=== PATIENT | female | born 1945 | race Caucasian/White ===

== ENCOUNTER 2024-10-26 15:54 | Inpatient (IN) | payer MEDICARE, OTHER, SELFPAY ==
[2024-10-26] VITALS (9 sets, daily range): BP systolic 95–151; BP diastolic 52–100; BMI 17.5
[2024-10-26] MEDS: CARDIZEM 10 MG IV (12:48)
[2024-10-26 12:50] LABS: % Basophils 0.7 % (0-2); % Eosinophils 2.9 % (0-6); % Immature Granulocytes 0.4 % (0-0.5); % Lymphocytes 11.8 % (20.5-51.1); % Monocytes 7.7 % (1.7-9.3); % Neutrophils 76.5 % (42.2-75.2); Absolute Basophils 0.1 10^3/uL (0-0.2); Absolute Eosinophils 0.3 10^3/uL (0-0.7); Absolute Immature Granulocytes 0.1 10^3/uL (0-0.05); Absolute Lymphocytes 1.3 10^3/uL (1.2-3.4); Absolute Monocytes 0.9 10^3/uL (0.1-0.6); Absolute Neutrophils 8.6 10^3/uL (1.4-6.5); Hemoglobin 18.4 g/dL (12.0-16.0); Mean Corp Hgb Conc. 34.7 g/dL (33.0-37.0); Mean Corpuscular Hgb 28.2 pg (27.0-31.0); Mean Corpuscular Volume 81.2 fL (81.0-99.0); Mean Platelet Volume 12.8 fL (7.4-10.4); Nucleated Red Blood Cells % 0 %; Platelet Count 132 10^3/uL (130-400); Red Blood Cell Count 6.53 10^6/uL (4.20-5.40); Red Cell Dist. Width 13.5 % (11.5-14.5); White Blood Cell Count 11.2 10^3/uL (4.8-10.8)
[2024-10-26 13:06] LABS: ALT (SGPT) 52 U/L (0-35); AST (SGOT) 70 U/L (14-36); Albumin 4.4 g/dl (3.5-5.0); Alkaline Phosphatase 64 U/L (38-126); Blood Urea Nitrogen 42 mg/dl (7-17); Calcium 9.6 mg/dl (8.4-10.2); Carbon Dioxide 21 mmol/L (22-30); Chloride 94 mmol/L (98-107); Estimated Creatinine Clearance 37 ml/min; Glucose 128 mg/dl (70-99); Magnesium 2.1 mg/dl (1.6-2.3); Sodium 132 mmol/L (135-145); Total Bilirubin 1.2 mg/dl (0.2-1.3); eGFR 51.43
[2024-10-26] MEDS: LR 500 IV (13:23)
[2024-10-26] MEDS: MAGNESIUM SULFATE 50 IV (13:24)
[2024-10-26] MEDS: KCL 40 MEQ PO (13:25)
--- NOTE | 2024-10-26 13:29 | ED.GENMED ---
History of Present Illness
General
Chief Complaint: Breathing Problem
Time Seen by Provider: 10/26/24 12:25
History of Present Illness
History of Present Illness:
79-year-old female presents to the emergency department for evaluation of generalized weakness and shortness of breath. She states she had an episode of vomiting and diarrhea approximately 1 week ago, since that time has felt increasingly lethargic
and short of breath with exertion. She states she can take no more than 2 steps without having to sit and rest. Denies any chest pain. Prior history of CAD/AR with a stent to the LAD in 2020, states the symptoms are not at all comparable to that.
No fevers, chills, coughing, or shortness of breath at rest.
Past History
Past History
ED Past Medical History: CAD, HTN, Hypercholesterolemia and AR; Negative IDDM or NIDDM
Social History
Tobacco: Smoker
Review of Systems
Review of Systems
Allergies reviewed?: Yes
All Other Systems: ROS reviewed and negative except as documented in HPI and ROS
Phy Exam
Physical Exam
Physical Exam:
GEN: Thin, chronically ill-appearing, no acute distress
HEENT: Oral mucosa dry no scleral icterus
Cardiac: Markedly tachycardic, regular, no murmur
Lung: No respiratory distress, no tachypnea, lungs clear to auscultation bilaterally
MSK: No gross deformity or injuries
Skin: Good color, no pallor or jaundice, no rashes
Neuro: AO x3, moves all extremities freely
Psych: Calm, cooperative
Scores
Heart Failure Risk
Heart Failure Risk Score: Not Applicable
Course
Orders/Labs/Results
Orders:
Orders
10/26/24 Breakfast
Cholesterol Lowering
Cholesterol Lowering: Sodium, 2 Gram
10/26/24 12:31
Electrocardiogram (*1) Urgent
Reason for Study: Chest Pain
Cardiac Monitoring- Treatment ONCE
EKG- Treatment ONCE
IV Insert/Care/Rem.- Treatment PRN
10/26/24 12:34
Complete Blood Count/With Diff Urgent
Comprehensive Metabolic Panel Urgent
Magnesium Urgent
Comment: ADD
PTT Urgent
Comment: ADD ON
Prothrombin Time Urgent
TSH Reflex To Free T4 Routine
Comment: ADD ON
10/26/24 12:41
Add On- LAB Urgent
Tests Added?: magnesium
Diltiazem HCl [Cardizem] 10 mg IV NOW STA
10/26/24 12:44
CR Chest Portable - 1 View Urgent
Comment:
Reason For Exam: SOB
Reason Study Needs to be Portable: Other
10/26/24 13:12
Magnesium Sulfate 2 Gram/50 ml [Magnesium Sulfate] 2 gram in 50 ml IV NOW
Potassium Chloride [KCl] 40 meq PO NOW STA
Potassium Chloride [KCl] 20 meq 0.9% Sodium Chloride 150 ml [Nss] 150 ml IV NOW
10/26/24 13:13
Lactated Ringers [Lr] 500 ml IV BOLUS
10/26/24 14:07
Heparin 3,300 units IV NOW STA
Nursing to Place Non Medication Order As Directed
Physician Order: PTT 6 hours after initial start of Heparin infusion
Above order entered?: Yes
10/26/24 14:15
Heparin 85718 Units/250 ml 25,000 units in 250 ml IV PER PROTOCOL
Weight to be used for heparin protocol in kilograms (kg):: 55.2
Protocol:: Cardiac Tx/Acute Coronary
PTT Goal Range to be used:: PTT 73 to 111 seconds
Order type:: Initial
INITIAL Infusion Dose (UNITS/KG/hr) & then follow protocol:: 12 units/kg/hr
Infusion Dose in UNITS/hr & then follow protocol (UNITS/hr):: 650
INFUSION RATE in mL/hr & then follow protocol (mL/hr):: 6.5
PTT less than or equal to 64 seconds:: Increase rate by 200 units/hr (+ 2 mL/hr)
PTT 64.1 to 72.9 seconds:: Increase rate by 100 units/hr (+ 1 mL/hr)
PTT 73 to 111 seconds:: Target Range. No change in rate.
PTT 111.1 to 130.9 seconds:: Decrease rate by 100 units/hr (- 1 mL/hr)
PTT 131 to 199.9 seconds:: HOLD for 1 hr. Then decrease rate by 200 units/hr (- 2 mL/hr)
PTT greater than or equal to 200 seconds:: HOLD for 2 hrs & Notify Provider. Then decrease by 200 units/hr (-
2 mL/hr)
Lab follow-up:: Each change, PTT q6h until 2 consecutive are therapeutic. Then PTT
daily.
10/26/24 14:43
Add On- LAB Urgent
Tests Added?: APTT
Potassium Chloride [KCl] 20 meq 0.9% Sodium Chloride 150 ml [Nss] 150 ml IV NOW
10/26/24 15:26
Urinalysis Reflex To Culture Routine
10/26/24 15:27
Admit/Transfer Patient As Directed
Co-Sign Provider:
Level of Care: Inpatient admission
Assign to:: IVU
Physician / Group: hortensia
Diagnosis: atrial fib with RVR
Reason for Hospitalization: atrial fib with RVR
Expected length of stay greater than two midnights?: Yes
ELOS- Estimated Length of Stay in days: 3
I certify the patient meets the requirements for IP care: Yes
PRN Pain Medication Management As Directed
May give lesser potent ordered pain med per pt: Yes
preference::
Protocol:: Medication orders for pain may be administered in a
manner that supports deferring to patient preference
when the pt is:
- Requesting an ordered lesser potent pain medication.
Least to most potent pain medications are defined
as: acetaminophen < NSAID < tramadol < opioids
(morphine, oxycodone, hydromorphone).
- Requesting a lesser dose of the same medication IF
ORDERED.
- Requesting a less intrusive route of administration
if both routes are prescribed by the provider (PO <
IV).
10/26/24 15:28
Code Status As Directed
Resuscitation Status: Full Code
10/26/24 15:43
Add On- LAB Routine
Tests Added?: TSH with reflex to free T4
10/26/24 15:45
Diltiazem 125 mg/125 ml Nss [Cardizem] 125 mg in 125 ml IV PER PROTOCOL
Initial dose in mg/hr, then titrate:: 5
Titrate to keep:: Heart rate 80-100 bpm
Titrate by mg/hr:: 5 mg/hr
Frequency of titrations (minutes):: 15
Maximum dose in mg/hr:: 15
10/26/24 16:29
COVID-19 Antigen Stat
Source: Nasal Swab
Influenza A+B Rapid Molecular Stat
KARLA Source: Nasal Swab
Specimen Description:
10/26/24 17:23
0.9% Sodium Chloride 1000 ml [Nss] 1,000 ml IV 100 mls/hr
Acetaminophen [Tylenol] 650 mg PO Q4HPRN PRN
Bisacodyl [Dulcolax] 10 mg RECTAL [id number] PRN
Diltiazem 125 mg/125 ml Nss [Cardizem] 125 mg in 125 ml IV PER PROTOCOL
Currently infusing. Continue current dose and titrate:: Yes
Titrate to keep:: Heart rate 80-100 bpm
Titrate by mg/hr:: 5 mg/hr
Frequency of titrations (minutes):: 15
Maximum dose in mg/hr:: 15
Docusate W/Senna [Senokot-S] 1 tablet PO BIDPRN PRN
Polyethylene Glycol Powder [Miralax] 17 grams PO DAILYPRN PRN
10/26/24 17:23
CARDIOLOGY CONSULT Routine
Consulting Provider: Tramaine Rios
Was physician already notified: Yes
Heparin Protocol- PTT Orders As Directed
PTT per Heparin protocol: -Obtain CBC and baseline PTT - if not already collected.
-Obtain PTT 6 hours from start of infusion. Then, every 6 hours until 2 consecutive
PTT's are therapeutic. Then, PTT Daily.
-With each rate change, obtain PTT every 6 hours until 2 consecutive PTT's are
therapeutic. Then, PTT Daily.
Activity As Directed
Activity Level: As Tolerated
Notify MD As Directed
Notify physician if: PTT is greater than or equal to 200.
Vital Signs As Directed
Frequency: Per unit guidelines
10/26/24 18:00
Atorvastatin [Lipitor] 80 mg PO QPM
10/27/24 06:00
Basic Metabolic Panel IN AM
Cardiovascular Evaluation IN AM
Complete Blood Count/No Diff IN AM
10/27/24 08:00
Aspirin Chewable [Low Strength Aspirin] 81 mg PO DAILY
Ezetimibe [Zetia] 10 mg PO DAILY
10/28/24 06:00
Basic Metabolic Panel IN AM
Complete Blood Count/No Diff IN AM
Complete Blood Count/No Diff Q2D
Comment: notify provider: Platelet count < 130,000 or decrease by 50% from baseline
10/29/24 06:00
Basic Metabolic Panel IN AM
Complete Blood Count/No Diff IN AM
10/30/24 06:00
Basic Metabolic Panel IN AM
Complete Blood Count/No Diff IN AM
Complete Blood Count/No Diff Q2D
Comment: notify provider: Platelet count < 130,000 or decrease by 50% from baseline
11/01/24 06:00
Complete Blood Count/No Diff Q2D
Comment: notify provider: Platelet count < 130,000 or decrease by 50% from baseline
11/03/24 06:00
Complete Blood Count/No Diff Q2D
Comment: notify provider: Platelet count < 130,000 or decrease by 50% from baseline
11/05/24 06:00
Complete Blood Count/No Diff Q2D
Comment: notify provider: Platelet count < 130,000 or decrease by 50% from baseline
11/07/24 06:00
Complete Blood Count/No Diff Q2D
Comment: notify provider: Platelet count < 130,000 or decrease by 50% from baseline
11/09/24 06:00
Complete Blood Count/No Diff Q2D
Comment: notify provider: Platelet count < 130,000 or decrease by 50% from baseline
11/11/24 06:00
Complete Blood Count/No Diff Q2D
Comment: notify provider: Platelet count < 130,000 or decrease by 50% from baseline
Abnormal Lab Results
10/26/24
12:34
WBC 11.2 H 10^3/uL
(4.8-10.8)
RBC 6.53 H 10^6/uL
(4.20-5.40)
Hgb 18.4 H g/dL
(12.0-16.0)
Hct 53.0 H %
(37.0-47.0)
MPV 12.8 H fL
(7.4-10.4)
Abs Immat Gran (auto) 0.1 H 10^3/uL
(0-0.05)
Absolute Neuts (auto) 8.6 H 10^3/uL
(1.4-6.5)
Absolute Monos (auto) 0.9 H 10^3/uL
(0.1-0.6)
Neutrophils % 76.5 H %
(42.2-75.2)
Lymphocytes % 11.8 L %
(20.5-51.1)
Sodium 132 L mmol/L
(135-145)
Potassium 3.0 L mmol/L
(3.5-5.1)
Chloride 94 L mmol/L
(98-107)
Carbon Dioxide 21 L mmol/L
(22-30)
BUN 42 H mg/dl
(7-17)
Creatinine 1.1 H mg/dL
(0.6-1.0)
Glucose 128 H mg/dl
(70-99)
AST 70 H U/L
(14-36)
ALT 52 H U/L
(0-35)
10/26/24 12:34
10/26/24 12:34
Vital Signs
Initial and Last Documented VS:
Initial Vital Signs
Pulse Resp
159 22
10/26/24 12:26 10/26/24 12:26
Last Documented Vital Signs
Temp Pulse Resp BP Pulse Ox
98.0 F 104 47 95/64 96
10/26/24 16:45 10/26/24 16:45 10/26/24 15:45 10/26/24 16:00 10/26/24 16:45
MDM/Problems Addressed
MDM/Problems Addressed:
Patient's shortness of breath is most likely on the basis of new onset atrial fibrillation. She was given an IV diltiazem bolus with good improvement in heart rates. The ultimate cause of this is most likely hypovolemia and electrolyte depletion,
IV fluids and electrolytes initiated in the ED. Heart rates consistently 110 to 120 thus do not feel there is any indication for a diltiazem drip. Heparin drip initiated for anticoagulation. She has not a cardioversion candidate. Will admit to
the hospitalist service for further management
*Critical Care Note
Total Time (30-74mins, 75-104mins- exclusive of procedures): 35 min
comment:
Critical care time: 35 minutes
Critical care time was exclusive of: Separately billable procedures, treating other patients, and teaching time
Critical care was necessary to treat or prevent imminent or life-threatening deterioration of the following conditions: Rapid atrial fibrillation
Critical care time spent personally by me on the following activities:
[x] Review of old charts
[x] Obtaining history from patient or surrogate
[x] Ordering and review of the laboratory studies
[x] Ordering and review of radiographic studies
[x] Ordering and performing treatments and interventions
[x] Patient patient's response to treatment
[x] Development of treatment plan with patient or surrogate
ED Attending Note
-
Portions of this chart may have been created with voice recognition software.� Occasional wrong word or��sound alike� substitutions may have occurred due to the inherent limitations of voice recognition software.
Discharge Plan
Departure
Patient Disposition: Admit
Date of Disposition: 10/26/24
Time of Disposition: 14:08
Admit to: Telemetry
Presentation/result/management discussed w/ accepting MD/DO: Hospitalist
Discharge Problem:
Atrial fibrillation, new onset, Acute dehydration, Acute hypokalemia
Interventions
Interventions:
*Risk Screen - Suicide Last Done: 10/26/24 12:26
*General Assessment Last Done: 10/26/24 12:28
*Neglect/Abuse Screening Last Done: 10/26/24 12:26
ED- Fall Risk Assessment Last Done: 10/26/24 12:33
*ED COVID-19 Vaccine History Last Done: 10/26/24 12:26
ED- Cardiac Assessment Last Done: 10/26/24 12:28
ED- Pulmonary Assessment Last Done: 10/26/24 12:32
[2024-10-26 14:37] LABS: INR 0.93; PT 12.9 Sec (11.4-14.6)
[2024-10-26] MEDS: HEPARIN 3300 UNITS IV (15:01)
[2024-10-26] MEDS: HEPARIN 25000 UNITS/250 ML IV (15:02)
--- NOTE | 2024-10-26 15:06 | HPS.HSE ---
Addendum entered and electronically signed by Bre Toure MD 10/26/24 15:57:
see my update note for addendum
Original Note:
Family Physician
-
Family Physician: Andrew Katz
Chief Complaint
-
sob
History of Present Illness
79-year-old female with past medical history of hyperlipidemia, [place], coronary artery disease, hypertension presents to the emergency department for evaluation of generalized weakness and shortness of breath. She states she had an episode of
vomiting and diarrhea approximately 5 days ago. She vomited once, and had multiple episodes of diarrhea patient few days. since that time has felt increasingly lethargic and short of breath with exertion. She states she can take no more than 2
steps without having to sit and rest. Patient stated frequent falls.denies hitting head patient denied any headache. She was dizzy. Patient denied any congestion, cough. denies any chest pain. No fevers, chills, coughing. Patient denied
abdominal pain. Denies dysuria materia. Patient stated poor oral intake for past 5 days.
Patient was noted in A-fib with RVR on arrival. Heparin drip, Cardizem drip. Patient also supplemented with IV KCl and mag.
Admitting for further management
Medical History
Past Medical History
Past Medical History: Reports Other
Additional Past Medical History:
Hyperlipidemia
UT
CAD
Hypertension
Bradycardia
Hyperlipidemia
Past Surgical History: Reports Other
Additional Past Surgical History:
Status post stent placement
Hysterectomy
BSO
Appendectomy
Social History
Tobacco: Non-smoker
Alcohol: None
Drug: None
Living: Alone
Family History
Family History: Not pertinent
Allergies / Home Medications
Allergies reflects when Allergies were last updated in [facility].
Home Medications with original date entered in [facility]
Allergy/Medication List:
Allergies
Allergy/AdvReac Type Severity Reaction Status Date / Time
band aid Allergy Rash Uncoded 10/26/24 12:26
Home Medications
aspirin 81 mg chewable tablet 81 mg PO DAILY 05/30/20
atorvastatin 80 mg tablet 80 mg PO QPM #30 tabs 05/30/20
lisinopril 10 mg tablet 10 mg PO DAILY #30 tabs 05/30/20
acetaminophen 325 mg tablet (Tylenol) 650 mg PO Q6HPRN PRN mild pain 10/26/24
ezetimibe 10 mg tablet (Zetia) 10 mg PO DAILY 10/26/24
Review of Systems
-
Constitutional: Reports Fatigue
EENT: Reports No Symptoms
Respiratory: Reports Trouble Breathing
Abdomen/GI: Reports Nausea, Vomiting and Diarrhea
: Reports No Symptoms
Musculoskeletal: Reports No Symptoms
Skin: Reports No Symptoms
Neurological: Reports Dizzy and Weakness
Endocrine: Reports No Symptoms
Hematologic/Lymphatic: Reports No Symptoms
Psych: Reports No Symptoms
Physical Exam
Vital Signs
Vital Signs
Pulse Resp BP
114 47 97/72
10/26/24 14:05 10/26/24 14:05 10/26/24 13:01
Physical Exam
General: Well Developed, Well Nourished and No Apparent Distress
HEENT: NormoCephalic, Moist mucous membranes and Atraumatic
Respiratory: Clear
Cardiac: S1/S2 and Regular Rhythm; No Murmur or Rub
GI: Soft, Non Tender, Non Distended and Normal Bowel Sounds; No Organomegaly
Rectal: Deferred by Provider
Musculoskeletal: No Clubbing, No Cyanosis and No Edema
Skin: No Rash
Neuro: AO x 3 and Nonfocal/grossly intact
Psych: Calm
Laboratory Results
-
10/26/24 12:34
10/26/24 12:34
Laboratory Results
PT 12.9 Sec (11.4-14.6) 10/26/24 12:34
INR 0.93 10/26/24 12:34
APTT Cancelled 10/26/24 14:07
Total Bilirubin 1.2 mg/dl (0.2-1.3) 10/26/24 12:34
AST 70 U/L (14-36) H 10/26/24 12:34
ALT 52 U/L (0-35) H 10/26/24 12:34
Alkaline Phosphatase 64 U/L (38-126) 10/26/24 12:34
Data Reviewed
-
Diagnostic Radiology: Report Reviewed by me
Lab Data: Labs Reviewed by me
Impression/Plan
-
#new onset rapid atrial fib likely from dehydration/hypovolemia
-Patient received Cardizem bolus in ER
-Continue to monitor heart rate
-Cardiology consulted
-EKG with A-fib with RVR
-Heparin continued
#N/V/D likely viral
-resolved
-obtain flu and COVID.
# Leukocytosis likely stress reaction
-WBCs 11.2
-Patient is afebrile
-Continue to monitor
-Chest x-ray with no acute disease
-Obtain urinalysis
# Hemoconcentration likely dehydration
-Hemoglobin of 18.4, hematocrit 53.0
-Fluids continued
-Monitor CBC in a.m.
# Hyponatremia likely hypovolemic
-Sodium 132
-fluids continued
# Hypokalemia/FERNANDO likely dehydration
-K3.0
-KCl IV and oral
-Patient received mag rider
# Transaminitis likely chronic likely dehydration
-AST 70, ALT 52
# Hypotension likely from dehydration we will continue
-Monitor vital signs
# Coronary artery disease
-Status post cardiac stent
-Aspirin continued
# Hyperlipidemia
-Zetia continued
-Atorvastatin continued
# Essential hypertension
-Hold lisinopril due to hypotension
# DVT prophylaxis
-Heparin drip
# CODE STATUS
-Full code
[2024-10-26] MEDS: KCL 160 MEQ IV (15:11)
--- NOTE | 2024-10-26 15:57 | W.PN.UPDATE ---
Update Note
Progress Note Update
I saw and examined the patient.
The TAPE LIBRARIAN Ian's note was reviewed and I agree with the note.
Comment: 79 y/o F, hx of CAD with [place], HTN, presenting to Er with SOB, fatigue, palpitations. Patient report 5 days had 1 episode of nausea/vomiting along with several bouts of diarrhea. Since then her GI symptoms have improved but now feels
lethargic and CHRISTIANSON. She is unable to ambulate more than 2 steps without symptoms. She reports frequent falls, no head trauma. Reports dizziness. No chest pain. no fever/chills/cough. Reports poor oral intake x 5 days.
in ER, found to have mild FERNANDO, hypokalemia and rapid AFib - given 500 cc LR, Cardizem push and K replacement. IV heparin started.
Physical Exam
General: Well Developed, Well Nourished and No Apparent Distress
HEENT: Normocephalic, Moist mucous membranes and Atraumatic
Respiratory: Clear
Cardiac: Irregular rhythm, tachycardia; No Murmur or Rub
GI: Soft, Non Tender, Non Distended and Normal Bowel Sounds; No Organomegaly
Rectal: Deferred by Provider
Musculoskeletal: No Clubbing, No Cyanosis and No Edema
Skin: No Rash
Neuro: AO x 3 and Nonfocal/grossly intact
Psych: Calm
Plan: Mildly dehydrated will start low rate IVF. replacement electrolytes and repeat AM labs. For Rapid AFib, admit to IVU, start Cardizem drip. Echo. Cards consult. TSH pending. Known to Dr. Anaya.
--- NOTE | 2024-10-26 16:08 | CON.CAR ---
Addendum entered and electronically signed by Tramaine Rios DO 10/26/24 16:55:
I saw and examined the patient.
The License Issuer's note was reviewed and I agree with the note.
Comment:
Plan:
-Patient presented after N/V/D last week with weakness and lightheadedness. Found to have evidence of dehydration, hypokalemia as well as afib with RVR.
IV Cardizem for rate control
IV heparin and transition to Eliquis once no procedures are planned.
Check echo to eval EF
IF fails to convert spontaneously, could consider YESENIA/cv inpt vs outpt.
IVF hydration and repletion of lytes as per primary service
Cont supportive care
Outpt follow up with Dr Anaya.
Original Note:
Consultation
Consultation Request
Date/Time Consultation Performed: 10/26/24
Requesting Provider: Dr. Toure
Performing Provider: Kary Kennedy PA-C for Dr. Rios
Reason for Consultation: afib
Medical History
-
Chief Complaint: lightheadedness, weakness
History of Present Illness:
Patient is a 79-year-old female with past medical history of CAD with [place] in 2019 resulting in LAD PCI, hypertension, hyperlipidemia, prior cervical cancer status post hysterectomy/BSO in 1993, prior tobacco abuse who presented to [facility]
due to lightheadedness. She reports last week she had a large amount of vomit as well as diarrhea. She reports since that time she has felt lightheaded, dyspneic with exertion, and with palpitations/heart racing. She reports multiple times at
night she wakes up 'soaking wet'. She reports she has no strength. She denies fevers or chills. No chest pain. On arrival noted to be in atrial fibrillation with rapid ventricular response. Also with evidence of dehydration and electrolyte
abnormalities including hypokalemia. Cardiology consulted for evaluation
PMH:
CAD status post [place] with LAD PCI in 2019
Hypertension
Hyperlipidemia
Prior cervical cancer status post hysterectomy/BSO in 1993
Former tobacco use
Past Medical History
Past Medical History: Other (in HPI)
Social History
Tobacco: Former Smoker
Alcohol: Occasional
Family History
Family History: CAD and Cancer
Allergies / Home Medications
Allergy/AdvReac Type Severity Reaction Status Date / Time
band aid Allergy Rash Uncoded 10/26/24 12:26
�Medication �Instructions �Recorded �Confirmed �Type
aspirin 81 mg chewable tablet 81 mg PO DAILY 05/30/20 10/26/24 Rx
atorvastatin 80 mg tablet 80 mg PO QPM #30 tabs 05/30/20 10/26/24 Rx
lisinopril 10 mg tablet 10 mg PO DAILY #30 tabs 05/30/20 10/26/24 Rx
acetaminophen 325 mg tablet 650 mg PO Q6HPRN PRN mild pain 10/26/24 10/26/24 History
(Tylenol)
ezetimibe 10 mg tablet (Zetia) 10 mg PO DAILY 10/26/24 10/26/24 History
Review of Systems
-
History Source: Patient
All other systems: Negative unless noted
Physical Exam
Vital Signs
Pulse Resp BP
115 22 111/66
10/26/24 15:30 10/26/24 15:30 10/26/24 15:00
Lab Results
10/26/24 12:34
10/26/24 12:34
Physical Exam
General: No Apparent Distress and Comfortable
HEENT: Normocephalic, Anicteric and Moist Mucous Membranes
Respiratory: Clear and Non Labored Respirations
Cardiac: S1/S2 and Irregular Rhythm
GI: Soft and Normal Bowel Sounds
Musculoskeletal: No Clubbing, No Cyanosis and No Edema
Skin: Warm and Dry
Neuro: AO x 3
Impression / Plan
-
Primary Basic Acoustic Analyst: Dr. Anaya
Assessment:
Presentation with lightheadedness, weakness
Dehydration
FERNANDO
Hypokalemia
Hyponatremia
Elevated LFTs
Atrial fibrillation with RVR, new diagnosis, likely secondary to above
CAD status post [place] with LAD PCI in 2019
Hypertension
Hyperlipidemia
Prior cervical cancer status post hysterectomy/BSO in 1993
Former tobacco use
ECHO 03/25/23: EF 55 to 60%, no regional wall motion abnormalities noted, mild TR, PAP 25 to 30 mmHg
Plan:
-Patient presented after N/V/D last week with weakness and lightheadedness. Found to have evidence of dehydration, hypokalemia as well as afib with RVR.
-covid pending. CXR without acute abnormality
-afib is new diagnosis for patient. currently with RVR. being started on IV cardizem gtt
-[id number] score of 5 for age, female, HTN, vascular disease. denies history of bleeding issues. currently on IV heparin. will plan to transition to eliquis in AM. continue OP asa for now, however may consider stopping with initiation of OAC
-check echo, last from 2022 as above
-check TSH
-replete K
-IVF
-hopefully with improvement in hydration status and electrolyte correction, patient will spontaneously convert to SR. if not, could consider for YESENIA/CV prior to DC
-d/w hospitalist
Data Reviewed
-
EKG: Tracing Personally Visualized and interpreted
Radiology: Report Reviewed by me
Medical Tests (Nuc Med, Echo etc): Report Reviewed by me
Labs: Labs Reviewed by me
Old Records: Reviewed
[2024-10-26] MEDS: CARDIZEM 125 IV (16:27)
[2024-10-26 17:13] LABS: COVID-19 Antigen Negative (Negative)
[2024-10-26 17:30] LABS: TSH Reflex To Free T4 1.47 uIU/ml (0.47-4.68)
[2024-10-26] MEDS: NSS 1000 IV (17:46)
--- NOTE | 2024-10-26 18:29 | PTCARENOTE ---
Rec'd pt from ED awake and alert with no complaints. Pt Afib on monitor, on cardizem gtt at 10mg/hr. Heparin at 650 units/hr. NSS begun at 100ml/hr. Admission assessment completed and admission history obtained. See worklist for VS/I and O and
assessments.
[2024-10-26] MEDS: LIPITOR 80 MG PO (18:48)
--- NOTE | 2024-10-26 21:31 | PTCARENOTE ---
Patient received at change of shift resting in the bed. Normal saline solution infusing at 100mL/hr. Heparin gtt infusing at 650 units/hr. Diltiazem gtt infusing at 10mg/hr. Patient is without complaints at this time. Denies chest pain or pressure,
dizziness, and/or shortness of breath. Atrial fibrillation on enzyme chemist with occasional PVC's. Patient ambulated to bathroom, standby assist. Voided 400mL mushtaq urine, U/A sent per order. Discussed plan of care with patient including purpose
of diltiazem and heparin gtt. Afib packet given to patient. Call fontenot within reach. Bed in lowest position, wheels locked. Care ongoing.
[2024-10-26 21:32] LABS: Urine Albumin 2+ (Neg - Trace); Urine Bilirubin Negative (Negative); Urine Character Clear (Clear); Urine Color Yellow; Urine Glucose Negative (Negative); Urine Ketone 1+ (Negative); Urine Leukocyte Negative (Negative); Urine Nitrite Negative (Negative); Urine Occult Blood Negative (Negative); Urine Urobilinogen Negative (Neg - 1+)
[2024-10-26 21:39] LABS: Urine Bacteria Few (Negative); Urine Red Blood Cell 0-2 /HPF (0-2); Urine Squamous Cell 0-2 /LPF (Few)
[2024-10-26 21:44] LABS: APTT 59.4 Sec (23.4-35.0)
[2024-10-26 21:46] LABS: AST (SGOT) 60 U/L (14-36); Albumin 3.5 g/dl (3.5-5.0); Alkaline Phosphatase 53 U/L (38-126); Blood Urea Nitrogen 39 mg/dl (7-17); Calcium 9.5 mg/dl (8.4-10.2); Carbon Dioxide 22 mmol/L (22-30); Chloride 102 mmol/L (98-107); Estimated Creatinine Clearance 51 ml/min; Glucose 119 mg/dl (70-99); Potassium 3.3 mmol/L (3.5-5.1); Sodium 133 mmol/L (135-145); Total Bilirubin 0.8 mg/dl (0.2-1.3); Total Protein 6.1 g/dl (6.3-8.2); eGFR > 60.00
[2024-10-26 21:56] LABS: ALT (SGPT) 46 U/L (0-35)
[2024-10-27] MEDS: CARDIZEM 125 IV (02:00)
[2024-10-27 02:04] VITALS: BP 92/59
--- NOTE | 2024-10-27 02:28 | PTCARENOTE ---
Patient asking if there was a green party, stated she heard loud music, stated she heard what sounded like a live band. Patient also asking about plan of care which was discussed previously during this shift. Reviewed plan of care. Reoriented patient to
unit. Bed alarm armed due to forgetfulness. Call fontenot within reach. Care ongoing.
[2024-10-27] MEDS: NSS 1000 IV (03:00)
[2024-10-27 03:43] LABS: Hemoglobin 14.1 g/dL (12.0-16.0); Mean Corp Hgb Conc. 35.3 g/dL (33.0-37.0); Mean Corpuscular Hgb 28.4 pg (27.0-31.0); Mean Corpuscular Volume 80.5 fL (81.0-99.0); Mean Platelet Volume 12.3 fL (7.4-10.4); Platelet Count 141 10^3/uL (130-400); Red Blood Cell Count 4.97 10^6/uL (4.20-5.40); Red Cell Dist. Width 13.2 % (11.5-14.5); White Blood Cell Count 9.6 10^3/uL (4.8-10.8)
[2024-10-27 03:50] LABS: APTT 80.1 Sec (23.4-35.0)
[2024-10-27 04:21] LABS: Blood Urea Nitrogen 32 mg/dl (7-17); Calcium 8.4 mg/dl (8.4-10.2); Carbon Dioxide 20 mmol/L (22-30); Chloride 102 mmol/L (98-107); Estimated Creatinine Clearance 58 ml/min; Glucose 105 mg/dl (70-99); HDL Cholesterol 18 mg/dl; LDL Cholesterol, Calculated 57 mg/dl; Potassium 3.3 mmol/L (3.5-5.1); Sodium 131 mmol/L (135-145); Total Cholesterol 104 mg/dl (50-199); Triglyceride 147 mg/dl (10-149); Very Low Density Lipoprotein 29 mg/dl (0-30); eGFR > 60.00
[2024-10-27 07:40] VITALS: BP 105/66
--- NOTE | 2024-10-27 08:04 | W.PN.HOSP.TC ---
Today's Communication/Plan
-
see A/P
Assessment / Plan
Assessment / Plan
79 y/o F, hx of CAD with [place], HTN, presented with SOB, fatigue, palpitations.
Patient reported 5 days had 1 episode of nausea/vomiting along with several bouts of diarrhea. Since then her GI symptoms have improved but then felt lethargic and CHRISTIANSON.
She is unable to ambulate more than 2 steps without symptoms. She reports frequent falls, no head trauma.
In ER, found to have mild FERNANDO, hypokalemia and rapid AFib - given 500 cc LR, Cardizem push and K replacement. IV heparin started.
A/P:
# new onset A fib with RVR likely precipitated by recent GI illness
IV Cardizem for rate control
IV heparin and transition to Eliquis once no procedures are planned.
Check echo
Card to consider YESENIA/CV inpt vs outpt if fails to convert spontaneously
# N/V/D likely acute viral gastroenteritis, resolved
flu/COVID negative.
# Mild Leukocytosis likely stress reaction, resolved
Patient is afebrile, CXR no acute disease
# Hemoconcentration on admission likely dehydration
# Hypotension on admission likely from dehydration
Hemoglobin 18.4 -> 14.1 today
s/p IVF, observe off additional IVF
BP improved, monitor BP
# Hyponatremia
possible 2/2 dehydration, monitor
# Hypokalemia
repleted K
# Mild FERNANDO likely dehydration, resolved
SCr 1.1 to 0.7
# Elevated LFT likely reactive
Trend
# Coronary artery disease
Status post cardiac stent
Aspirin continued
# Hyperlipidemia
Zetia/ Atorvastatin continued
# Essential hypertension
Hold lisinopril due to hypotension
DVT prophylaxis-Heparin drip
CODE STATUS-Full code
DW RN
Anticipated Discharge: > 48 hours
Subjective/Interval History
-
Date of Service: October 27, 2024
Objective Data
-
Labs:
Laboratory Results
10/26/24 10/27/24 10/27/24
21:17 03:18 03:19
WBC 9.6
Hgb 14.1 D
Hct 40.0
Plt Count 141
APTT 59.4 H 80.1 H
Sodium 133 L 131 L
Potassium 3.3 L 3.3 L
Chloride 102 102
Carbon Dioxide 22 20 L
BUN 39 H 32 H
Creatinine 0.8 0.7
Glucose 119 H 105 H
Calcium 9.5 8.4
Total Bilirubin 0.8
AST 60 H
ALT 46 H
Alkaline Phosphatase 53
10/27/24
09:15
WBC
Hgb
Hct
Plt Count
APTT Pending
Sodium
Potassium
Chloride
Carbon Dioxide
BUN
Creatinine
Glucose
Calcium
Total Bilirubin
AST
ALT
Alkaline Phosphatase
Vital Signs:
Vital Signs
Temp Pulse Resp BP Pulse Ox
36.6 C 63 20 105/66 94
10/27/24 07:40 10/27/24 07:40 10/27/24 07:40 10/27/24 07:40 10/27/24 07:40
I&O
10/26/24 10/27/24 10/28/24
06:59 06:59 06:59
Intake Total 1512.5 / 1512.5
Output Total 700 / 700
Balance 812.5 / 812.5
Review of Systems
-
All other systems: Reviewed and negative
Physical Exam
-
General: Well Developed, Well Nourished, No Apparent Distress, Comfortable and Conversant; Negative Respiratory Distress
HEENT: Normocephalic, Atraumatic, Nose Appears Normal and Ears Appear Normal; Negative Oxygen
Respiratory: Clear to Auscultation and Non Labored Respirations; Negative Accessory Resp Muscle Use
Cardiac: S1/S2 and Irregular Rhythm; Negative Murmur
GI: Soft, Nontender, Nondistended and Normal Bowel Sounds
Skin: Warm and Dry
Neuro: Awake, Alert and Oriented
Psych: Calm and Intact Judgement/Insight
Data Reviewed
-
Labs: Labs Reviewed by me
[2024-10-27] MEDS: ZETIA 10 MG PO (08:13)
[2024-10-27] MEDS: LOW STRENGTH ASPIRIN 81 MG PO (08:13)
[2024-10-27] MEDS: KCL 40 MEQ PO (08:19)
--- NOTE | 2024-10-27 08:43 | PTCARENOTE ---
Rec'd Pt sleeping, awakens easily, Dr Woods also in room to see pt. A+O, answers questions appropriately. Complained that she has not slept. Denies pain. VSS. Dr Toure notified of low K+ 3.3. KCL 40 meq PO ordered by Dr Woods and given to Pt.
--- NOTE | 2024-10-27 09:29 | W.PN.CARDCBS ---
Addendum entered and electronically signed by Johann Duran MD 10/27/24 15:48:
I saw and examined the patient.
The Property Management Assistant's note was reviewed and I agree with the note.
Comment: Briefly, 79-year-old woman past medical history of anterior STEMI (2019) who presents with lightheadedness and weakness found to be in atrial fibrillation with rapid ventricular response which is a new diagnosis for her
Based on history and initial lab work she was diagnosed with dehydration and is now receiving IV fluid resuscitation
Remains in atrial fibrillation
Echo today with preserved left ventricular systolic function and no high-grade valve disease, unchanged from prior
Heart rates are better controlled with IV Cardizem but blood pressure is marginal
Would recommend YESENIA direct-current cardioversion tomorrow to restore sinus rhythm if she remains in atrial fibrillation
New to Eliquis - ok to stop aspirin and continue single agent from my standpoint
Rest per Kary Kennedy
Original Note:
Today's Communication / Plan
-
IV heparin to eliquis and stop asa
continue IV cardizem. attempt to add low dose po BB
echo today
replete K
consider for YESENIA/CV in am if remains in afib
Impression / Plan
-
Primary Hvac Instructor: Dr. Anaya
Assessment:
Presentation with lightheadedness, weakness
Dehydration
FERNANDO
Hypokalemia
Hyponatremia
Elevated LFTs
Atrial fibrillation with RVR, new diagnosis, likely secondary to above
CAD status post [place] with LAD PCI in 2019
Hypertension
Hyperlipidemia
Prior cervical cancer status post hysterectomy/BSO in 1993
Former tobacco use
ECHO 03/25/23: EF 55 to 60%, no regional wall motion abnormalities noted, mild TR, PAP 25 to 30 mmHg
Plan:
-Patient presented after N/V/D last week with weakness and lightheadedness. Found to have evidence of dehydration, hypokalemia as well as afib with RVR.
-of note, had some confusion overnight per nursing notes. seems to be improved at present. states she did not sleep well overnight
-she remains in afib but HRs now controlled on IV cardizem gtt @5.
-[id number] score of 5 for age, female, HTN, vascular disease. denies history of bleeding issues. currently on IV heparin. will plan to transition to eliquis. will stop asa with addition of OAC to reduce bleeding risks
-check echo, last from 2022 as above
-TSH WNL
-replete K
-IVF
-hopefully with improvement in hydration status and electrolyte correction, patient will spontaneously convert to SR. if not, will consider for YESENIA/CV in AM
Progress Note - Hvac Instructor
Subjective
Date of Service: October 27, 2024
states she did not sleep well. no palpitations.
Objective
Labs:
10/27/24 03:19
10/27/24 03:18
Labs
Hgb 14.1 g/dL (12.0-16.0) D 10/27/24 03:19
Hct 40.0 % (37.0-47.0) 10/27/24 03:19
Plt Count 141 10^3/uL (130-400) 10/27/24 03:19
PT 12.9 Sec (11.4-14.6) 10/26/24 12:34
INR 0.93 10/26/24 12:34
APTT 80.1 Sec (23.4-35.0) H 10/27/24 03:18
Sodium 131 mmol/L (135-145) L 10/27/24 03:18
Potassium 3.3 mmol/L (3.5-5.1) L 10/27/24 03:18
BUN 32 mg/dl (7-17) H 10/27/24 03:18
Creatinine 0.7 mg/dL (0.6-1.0) 10/27/24 03:18
Glucose 105 mg/dl (70-99) H 10/27/24 03:18
Vital Signs and I&O:
Vital Signs
Temp Pulse Resp BP Pulse Ox
97.9 F 63 20 105/66 94
10/27/24 07:40 10/27/24 07:40 10/27/24 07:40 10/27/24 07:40 10/27/24 07:40
Vital Signs
Temp Pulse Resp BP Pulse Ox
97.9 F 63 20 105/66 94
10/27/24 07:40 10/27/24 07:40 10/27/24 07:40 10/27/24 07:40 10/27/24 07:40
Intake & Output
10/25/24 10/26/24 10/27/24 10/28/24
07:59 07:59 07:59 07:59
Intake Total 1512.5 / 1512.5
Output Total 700 / 700
Balance 812.5 / 812.5
Physical Exam
Physical Exam
GEN: No distress, awake, alert, oriented x3
HEENT: supple, anicteric, mmm, eomi
LUNGS: CTA B/L, no wheezes
CV: Irreg, S1/S2, no murmur
ABD: soft, BS+, NT/ND
EXT: No cyanosis, clubbing, edema
NEURO: Gross non-focal
SKIN: Warm, pink, dry. No rash
[2024-10-27] MEDS: ELIQUIS 5 MG PO ×2 (10:54→21:36)
--- NOTE | 2024-10-27 12:28 | CM ---
Chart reviewed. Patient is independent of ADLS, lives alone in a 3 STH, 0 XIN, 0 DME. Plan is for the patient to return home. CM to follow
[2024-10-27 14:13] VITALS: BMI 17.5
[2024-10-27 15:38] VITALS: BP 113/76
[2024-10-27] MEDS: TYLENOL 650 MG PO (17:31)
[2024-10-27] MEDS: LIPITOR 80 MG PO (17:31)
[2024-10-27 19:30] VITALS: BP 100/60
[2024-10-27 19:55] LABS: Hepatitis C Antibody Negative (Negative)
[2024-10-27 22:45] VITALS: BP 93/76
[2024-10-27 23:54] VITALS: BP 122/73
[2024-10-28] VITALS (8 sets, daily range): BP systolic 94–120; BP diastolic 41–82
--- NOTE | 2024-10-28 03:00 | PTCARENOTE ---
Pt received at change of shift. Afib on tele with HR 90s-120s. Cardizem gtt infusing at 5mg/hr. Pt with no complaints of CP or SOB. Pt AAOx3 but forgetful at times, bed alarm activated for pt safety. NPO since midnight for CV today. Pt
ambulating with x1 assist and rolling walker. Call fontenot within reach.
[2024-10-28] MEDS: TYLENOL 650 MG PO (04:22)
[2024-10-28 04:59] LABS: Hematocrit 38.3 % (37.0-47.0); Hemoglobin 13.8 g/dL (12.0-16.0); Mean Corpuscular Hgb 28.5 pg (27.0-31.0); Mean Corpuscular Volume 79.1 fL (81.0-99.0); Mean Platelet Volume 11.9 fL (7.4-10.4); Platelet Count 109 10^3/uL (130-400); Red Blood Cell Count 4.84 10^6/uL (4.20-5.40); Red Cell Dist. Width 13.2 % (11.5-14.5); White Blood Cell Count 7.8 10^3/uL (4.8-10.8)
[2024-10-28] MEDS: CARDIZEM 125 IV (05:02)
[2024-10-28 05:17] LABS: ALT (SGPT) 35 U/L (0-35); AST (SGOT) 45 U/L (14-36); Albumin 2.9 g/dl (3.5-5.0); Alkaline Phosphatase 51 U/L (38-126); Blood Urea Nitrogen 16 mg/dl (7-17); Calcium 8.5 mg/dl (8.4-10.2); Carbon Dioxide 17 mmol/L (22-30); Chloride 103 mmol/L (98-107); Estimated Creatinine Clearance 67 ml/min; Glucose 112 mg/dl (70-99); Magnesium 1.9 mg/dl (1.6-2.3); Sodium 131 mmol/L (135-145); Total Bilirubin 0.9 mg/dl (0.2-1.3); Total Protein 5.4 g/dl (6.3-8.2); eGFR > 60.00
[2024-10-28] MEDS: ELIQUIS 5 MG PO ×2 (07:42→21:34)
[2024-10-28] MEDS: ZETIA 10 MG PO (07:42)
--- NOTE | 2024-10-28 08:00 | PTCARENOTE ---
patient remains NPO after MN, gave am medications, shortly after that vomited, clear phlegm. patient had fever at 0430 102, retaken this am 98.4 orally. plt count 109. nalini Kennedy ATV MECHANIC on unit , aware. patient was ready to go for YESENIA/CV, Nalini MCNULTY
will consult Dr. Guadarrama.
--- NOTE | 2024-10-28 08:34 | W.PN.HOSP.TC ---
Addendum entered and electronically signed by Fatemeh Woods MD 10/28/24 15:58:
# underweight, BMI 17.5
Original Note:
Today's Communication/Plan
-
see A/P
Assessment / Plan
Assessment / Plan
79 y/o F, hx of CAD with [place], HTN, presented with SOB, fatigue, palpitations.
Patient reported 5 days had 1 episode of nausea/vomiting along with several bouts of diarrhea. Since then her GI symptoms have improved but then felt lethargic and CHRISTIANSON.
She is unable to ambulate more than 2 steps without symptoms. She reports frequent falls, no head trauma.
In ER, found to have mild FERNANDO, hypokalemia and rapid AFib - given 500 cc LR, Cardizem push and K replacement. IV heparin started.
A/P:
# new onset A fib with RVR likely precipitated by recent GI illness
IV Cardizem for rate control
IV heparin transitioned to Eliquis 5 mg BID
TTE/echo largely unrevealing: EF 60-65%. Diastolic function indeterminate due to atrial fibrillation. Normal right ventricular size and function. Aortic sclerosis without stenosis.
Card on board, planning YESENIA/CV
# Noted fever building architect of 2/4
Pt admits to chills
Pt denies to urinary symptoms, also no respiratory symptoms
Admission CXR no acute disease. Admission flu/COVID negative.
check blood Cx
Cover with empiric cefepime/vanc for now
YESENIA (for CV) can evaluate heart valve too
# N/V/D likely acute viral gastroenteritis, resolved
# Hemoconcentration on admission likely dehydration
# Hypotension on admission likely from dehydration
Hemoglobin 18.4 -> 13.8 today
s/p IVF
BP improved, monitor BP
# Hyponatremia
possible 2/2 dehydration, monitor
# Hypokalemia
repleted K
# Mild FERNANDO likely dehydration, resolved
SCr 1.1 to 0.5
# Elevated LFT likely reactive
Trend
# Coronary artery disease status post cardiac stent
Aspirin continued
# Hyperlipidemia
Zetia/ Atorvastatin continued
# Essential hypertension
Hold lisinopril due to hypotension
DVT prophylaxis- now on Eliquis
CODE STATUS-Full code
DW Card Dr Suarez
total time spent 51 min
Anticipated Discharge: 24 - 48 hours
Subjective/Interval History
-
Date of Service: October 28, 2024
Objective Data
-
Labs:
Laboratory Results
10/28/24
04:32
WBC 7.8
Hgb 13.8
Hct 38.3
Plt Count 109 L D
Sodium 131 L
Potassium 4.0
Chloride 103
Carbon Dioxide 17 L
BUN 16
Creatinine 0.5 L
Glucose 112 H
Calcium 8.5
Total Bilirubin 0.9
AST 45 H
ALT 35
Alkaline Phosphatase 51
Vital Signs:
Vital Signs
Temp Pulse Resp BP Pulse Ox
36.5 C 104 18 108/71 93
10/28/24 08:02 10/28/24 06:00 10/28/24 08:02 10/28/24 04:17 10/28/24 08:02
I&O
10/27/24 10/28/24 10/29/24
06:59 06:59 06:59
Intake Total 1512.5 / 1512.5
Output Total 700 / 700 850 / 850 800 / 800
Balance 812.5 / 812.5 -850 / -850 -800 / -800
Review of Systems
-
All other systems: Reviewed and negative
Physical Exam
-
General: Well Developed, Well Nourished, No Apparent Distress, Comfortable and Conversant; Negative Respiratory Distress
HEENT: Normocephalic, Atraumatic, Nose Appears Normal and Ears Appear Normal; Negative Oxygen
Respiratory: Clear to Auscultation and Non Labored Respirations; Negative Accessory Resp Muscle Use
Cardiac: S1/S2, Irregular Rhythm and Tachycardic; Negative Murmur
GI: Soft, Nontender, Nondistended and Normal Bowel Sounds
Skin: Warm and Dry
Neuro: Awake, Alert and Oriented
Psych: Calm and Intact Judgement/Insight
Data Reviewed
-
Labs: Labs Reviewed by me
--- NOTE | 2024-10-28 08:57 | W.PN.CARDCBS ---
Addendum entered and electronically signed by Miles Guadarrama MD 10/28/24 09:48:
I saw and examined the patient.
The Crime Analyst's note was reviewed and I agree with the note.
Comment:
GEN: No distress, awake, Ox3
HEENT: supple, anicteric, mmm
LUNGS: bilat rhonchi
CV: Reg, S1/S2, 2/6 syst LSB, no gallop
ABD: soft, BS+, NT/ND
EXT: No edema
NEURO: Gross non-focal
SKIN: No rash
Plan:
YESENIA: EF 50% with no JUAN thrombus, mild MR
Back in sinus rhythm s/p CV.
Cont Eliquis. Start Diltiazem 120mg daily po
Cont antibiotics and check BCx.
Original Note:
Today's Communication / Plan
-
for YESENIA/CV today
follow fever curve. BCx pending
continue eliquis
Impression / Plan
-
Primary Senior Staff Psychologist: Dr. Anaya
Assessment:
Presentation with lightheadedness, weakness
Dehydration
FERNANDO
Hypokalemia
Hyponatremia
Elevated LFTs
Atrial fibrillation with RVR, new diagnosis, likely secondary to above
CAD status post [place] with LAD PCI in 2019
Hypertension
Hyperlipidemia
Prior cervical cancer status post hysterectomy/BSO in 1993
Former tobacco use
ECHO 03/25/23: EF 55 to 60%, no regional wall motion abnormalities noted, mild TR, PAP 25 to 30 mmHg
ECHO 10/27/2024: EF 60 to 65%, no regional wall motion abnormalities noted, aortic sclerosis
Plan:
-Patient presented after N/V/D last week with weakness and lightheadedness. Found to have evidence of dehydration, hypokalemia as well as afib with RVR.
-She reportedly had temp of 102.9 overnight, improved with Tylenol administration and without recurrence. Started on antibiotics per primary service. Blood cultures pending
-With taking pills this morning, she had episode of vomiting. Denies nausea. States she thinks it was from taking her morning pills.
-Plan for YESENIA/cardioversion today as remains in atrial fibrillation on IV Cardizem.
-Continue Eliquis
-Echocardiogram with results as above
-TSH WNL
-Discussed with nursing, Wood Sash And Frame Carpenter
-Will follow
Progress Note - Senior Staff Psychologist
Subjective
Date of Service: October 28, 2024
Had episode of vomiting shortly after taking a.m. pills. No recurrence
Objective
Labs:
10/28/24 04:32
10/28/24 04:32
Labs
Hgb 13.8 g/dL (12.0-16.0) 10/28/24 04:32
Hct 38.3 % (37.0-47.0) 10/28/24 04:32
Plt Count 109 10^3/uL (130-400) L D 10/28/24 04:32
PT 12.9 Sec (11.4-14.6) 10/26/24 12:34
INR 0.93 10/26/24 12:34
APTT Cancelled 10/27/24 10:55
Sodium 131 mmol/L (135-145) L 10/28/24 04:32
Potassium 4.0 mmol/L (3.5-5.1) 10/28/24 04:32
BUN 16 mg/dl (7-17) 10/28/24 04:32
Creatinine 0.5 mg/dL (0.6-1.0) L 10/28/24 04:32
Glucose 112 mg/dl (70-99) H 10/28/24 04:32
Vital Signs and I&O:
Vital Signs
Temp Pulse Resp BP Pulse Ox
97.7 F 104 18 108/71 93
10/28/24 08:02 10/28/24 06:00 10/28/24 08:02 10/28/24 04:17 10/28/24 08:02
Vital Signs
Temp Pulse Resp BP Pulse Ox
97.7 F 104 18 108/71 93
10/28/24 08:02 10/28/24 06:00 10/28/24 08:02 10/28/24 04:17 10/28/24 08:02
Intake & Output
10/26/24 10/27/24 10/28/24 10/29/24
07:59 07:59 07:59 07:59
Intake Total 1512.5 / 1512.5
Output Total 700 / 700 1650 / 1650
Balance 812.5 / 812.5 -1650 / -1650
Physical Exam
Physical Exam
GEN: No distress, awake, alert, oriented x3
HEENT: supple, anicteric, mmm, eomi
LUNGS: no audible wheezes
CV: Irreg rhythm on tele
NEURO: Gross non-focal
SKIN: Warm, pink, dry. No rash
--- NOTE | 2024-10-28 08:59 | PHA.VAN.IN ---
Assessment
- Assessment
Renal Function: Appears similar to baseline
Maximum Temperature: 102.9 F - oral - 10/28 04:18
Concomitant Antimicrobials: cefepime
AUC Dosing Plan
- Dosing Variables
Dosing Weight (kg): 68.5
Dosing CrCl (ml/min): 84
Vd coefficient (L/kg): 0.7
- Empiric Dosing
Initial / Loading Dose: 1000mg - administration pending
Maintenance Regimen: Vanc 750mg Q12H starting at 1800
Estimated AUC (mcg*h/mL): 438
Estimated Peak (mcg*h/mL): 26.6
Estimated Trough (mcg/ml): 11.7
Estimated Half Life (H): 9.3
- Monitoring
No levels ordered at this time: consider levels in next few days
Pharmacokinetics Vancomycin I
- -
Patient Age: 79
Patient Sex: Female
Vancomycin Day #: 1
Indication: Other
Requesting Provider: Dr. Woods
Pertinent Antimicrobial Allergies:
no pertinent antibiotic allergies
Height / Weight:
Height 5 ft 10 in
Actual Weight 55.2 kg
IBW in k.5
Pertinent Past Medical History: BMI ~ 17.5
- Vital Signs / Lab Results
Temp Pulse Resp BP Pulse Ox
97.7 F 104 18 108/71 93
10/28/24 08:02 10/28/24 06:00 10/28/24 08:02 10/28/24 04:17 10/28/24 08:02
Lab Results - Hematology
10/26/24 10/27/24 10/28/24
12:34 03:19 04:32
WBC 11.2 H 9.6 7.8
Lab Results - Chemistry
10/26/24 10/26/24 10/27/24
12:34 21:17 03:18
BUN 42 H 39 H 32 H
Creatinine 1.1 H 0.8 0.7
Estimated Creat Clear 37 51 58
Albumin 4.4 3.5
10/28/24
04:32
BUN 16
Creatinine 0.5 L
Estimated Creat Clear 67
Albumin 2.9 L
Lab Results - Urine
10/26/24
21:17
Urine Nitrite (Reflex) Negative
Leukocyte Esterase Rfl Negative
Urine WBC (Reflex) 3-5
Ur Squamous Epith Cells 0-2
Urine Bacteria (Reflex) Few A
Microbiology Results
10/26/24 16:29 Influenza Types A & B (MALIKA) - Final
Nasal Swab Negative for Influenza A & B, NAAT
Negative results must be combined with clinical observations
and patient history.
Nucleic Acid Amplification test (NAAT)performed on the
Infogram platform.
--- NOTE | 2024-10-28 09:44 | ITS.CL.CARDI ---
Product Design Engineer - Cardioversion
Cardioversion
Procedure Report:
Date of Procedure: 10/28/23
Procedure: Cardioversion
Indication: Symptomatic atrial fibrillation
Performing Physician: Miles Guadarrama MD
Technique: The patient was brought to the holding area. Signed informed consent was obtained. A time out was called and performed. The patient was anesthetized by the anesthesia service. Anticoagulation status was reviewed and appropriate. R2 pads
were placed anteriorly and posteriorly. After YESENIA revealed no JUAN thrombus, a 200 J synchronized biphasic shock restored normal sinus rhythm without significant bradycardia. There were no complications.
Conclusion: Uncomplicated cardioversion from atrial fibrillation to sinus rhythm.
Recommendation: Routine post cardioversion care. Continue jail anticoagulation.
--- NOTE | 2024-10-28 10:42 | PN.CDI ---
CDI
- -
CDI:
Physician Documentation Request
Admit Date: 10/26/24 15:54
Dear Doctor Peggy,
Please review the following and provide your response in the progress notes.
Clinical Indicators:
Height: 5 ft 10 inches
Weight:121
BMI:17.5
09/26 note states: BMI assessment 'underweight (<18.5)
Please provide an associated diagnosis related to the abnormal BMI:
BMI < or = to 19
Underweight
Weight Loss
Cachectic
Anorexia
- BMI is not significant
- Other
Use of terms such as suspected, likely, concern for, or probable (associated with a specific diagnosis that is being evaluated, monitored, or treated as if it exists) are acceptable and can be coded in the inpatient setting, when documented at the
time of discharge.
Thank you,
Kay Rdz RN, BSN
CDI Specialist
tiger text
Please use your independent medical judgment in providing your response.
--- NOTE | 2024-10-28 11:33 | PTCARENOTE ---
patient returned back from CV, in NSR. friend at bedside. patient c/o being cold, warm blankets given, IV Cardizem off as ordered. BC X 2 being drawn by PCT, then will administer antibiotics as ordered.
[2024-10-28] MEDS: MAXIPIME 1000 MG IV ×2 (12:02→21:34)
[2024-10-28] MEDS: VANCOCIN 200 IV (12:02)
[2024-10-28] MEDS: STERILE WATER FOR INJECTION 10 ML IV ×2 (12:02→21:34)
[2024-10-28] MEDS: CARDIZEM CD 120 MG PO (12:06)
--- NOTE | 2024-10-28 13:38 | CM ---
Chart reviewed. Patient sleeping after successful DCCV. Patient's friend Wendy at bedside. Patient is independent of ADLS, lives alone in a 3 STH, 0 XIN, 0 DME. Patient with frequent falls, PT evaluation requested. Wendy told me patient
has 2 tenants living on the property, Wendy is 15 min away and patient has a nurse living across the street. Plan will be based on functional assessment by PT. Plan is for the patient to return home, return home with VN, or SNF. CM to follow
[2024-10-28] MEDS: VANCOCIN 150 IV (18:09)
[2024-10-28] MEDS: LIPITOR 80 MG PO (18:09)
[2024-10-29] VITALS (14 sets, daily range): BP systolic 104–125; BP diastolic 59–86; PULSE 63; O2SAT 95
[2024-10-29] MEDS: TYLENOL 650 MG PO ×3 (01:19→18:44)
--- NOTE | 2024-10-29 05:00 | PTCARENOTE ---
Pt received at change of shift. SR on tele with HR 60s-80s. Pt with complaints of generalized body aches especially in her joints, Tylenol administered, see MAR. Pt reports relief of pain and remains afebrile throughout shift. IV Abx
administered per orders. Pt AAOx3 and bed alarm in place for pt safety. Ambulating with x1 assist to bathroom, gait unsteady. Can make needs known. Call fontenot within reach.
[2024-10-29 05:32] LABS: ALT (SGPT) 33 U/L (0-35); AST (SGOT) 39 U/L (14-36); Albumin 2.9 g/dl (3.5-5.0); Alkaline Phosphatase 50 U/L (38-126); Blood Urea Nitrogen 18 mg/dl (7-17); Calcium 8.5 mg/dl (8.4-10.2); Carbon Dioxide 21 mmol/L (22-30); Chloride 101 mmol/L (98-107); Estimated Creatinine Clearance 67 ml/min; Glucose 109 mg/dl (70-99); Potassium 3.6 mmol/L (3.5-5.1); Sodium 131 mmol/L (135-145); Total Bilirubin 1.2 mg/dl (0.2-1.3); Total Protein 5.4 g/dl (6.3-8.2); eGFR > 60.00
[2024-10-29 05:37] LABS: Hematocrit 37.2 % (37.0-47.0); Mean Corp Hgb Conc. 34.9 g/dL (33.0-37.0); Mean Corpuscular Hgb 28.4 pg (27.0-31.0); Mean Corpuscular Volume 81.4 fL (81.0-99.0); Mean Platelet Volume 11.3 fL (7.4-10.4); Platelet Count 111 10^3/uL (130-400); Red Blood Cell Count 4.57 10^6/uL (4.20-5.40); Red Cell Dist. Width 13.2 % (11.5-14.5); White Blood Cell Count 5.8 10^3/uL (4.8-10.8)
[2024-10-29] MEDS: VANCOCIN 150 IV ×2 (05:57→17:41)
--- NOTE | 2024-10-29 06:10 | PHA.VAN.FU ---
Vancomycin Assessment / Plan
- Assessment
Renal Function: Stable
WBC's are: WNL
In the past 24 hrs, patient has been: Afebrile
Concomitant Antimicrobials: cefepime
- Dosing Plan
Continue: vancomycin 750 mg q12h - first dose 10/28 1799
- Monitoring Plan
No level(s) ordered at this time: consider levels after Thursday danyelle dose
- Follow Up
Pharmacy will continue to follow.
Vancomycin Follow UP
- -
Patient Age: 79
Patient Sex: Female
Vancomycin Day #: 2
Indication: Other
Requesting Provider: Dr. Woods
Pertinent Antimicrobial Allergies:
no pertinent antibiotic allergies
Height / Weight:
Height 5 ft 10 in
Actual Weight 55.2 kg
IBW in k.5
Pertinent Past Medical History: BMI ~ 17.5
- Vital Signs / Lab Results
Temp Pulse Resp BP Pulse Ox
97.7 F 68 18 121/66 96
10/29/24 04:21 10/29/24 04:21 10/29/24 04:21 10/29/24 04:21 10/29/24 04:21
Lab Results - Hematology
10/26/24 10/27/24 10/28/24
12:34 03:19 04:32
WBC 11.2 H 9.6 7.8
10/29/24
04:33
WBC 5.8
Lab Results - Chemistry
10/26/24 10/26/24 10/27/24
12:34 21:17 03:18
BUN 42 H 39 H 32 H
Creatinine 1.1 H 0.8 0.7
Estimated Creat Clear 37 51 58
Albumin 4.4 3.5
10/28/24 10/29/24
04:32 04:33
BUN 16 18 H
Creatinine 0.5 L 0.6
Estimated Creat Clear 67 67
Albumin 2.9 L 2.9 L
[2024-10-29] MEDS: ELIQUIS 5 MG PO ×2 (09:16→19:35)
[2024-10-29] MEDS: ZETIA 10 MG PO (09:16)
[2024-10-29] MEDS: MAXIPIME 1000 MG IV ×2 (09:17→21:58)
[2024-10-29] MEDS: STERILE WATER FOR INJECTION 10 ML IV ×2 (09:18→21:59)
[2024-10-29] MEDS: CARDIZEM CD 120 MG PO ×2 (10:34→18:42)
--- NOTE | 2024-10-29 11:16 | W.PN.CARDCBS ---
Addendum entered and electronically signed by Johann Duran MD 10/29/24 13:28:
I saw and examined the patient.
The Principal Automation Engineer's note was reviewed and I agree with the note.
Comment: Briefly, 79-year-old woman past medical history of anterior STEMI (2019) who presents with lightheadedness and weakness found to be in atrial fibrillation with rapid ventricular response which is a new diagnosis for her. Based on history
and initial lab work she was diagnosed with dehydration and received IV fluid resuscitation.
Underwent YESENIA/DCCV yesterday and has been maintaining sinus rhythm
New to Eliquis - ok to stop aspirin and continue single agent from my standpoint
Stable cardiac status, we will sign off
Outpatient follow-up has been arranged
Cardiac meds on discharge:
Eliquis 5 mg twice daily
Diltiazem CD 120 mg p.o. daily
Atorvastatin 80 mg daily
Zetia 10 mg daily
Original Note:
Today's Communication / Plan
-
in SR s/p CV
continue cardizem cd, eliquis
ok for DC from cardiac standpoint, follow up arranged. may require SNF
Impression / Plan
-
Primary Dough Puncher: Dr. Anaya
Assessment:
Presentation with lightheadedness, weakness
Dehydration
FERNANDO
Hypokalemia
Hyponatremia
Elevated LFTs
Atrial fibrillation with RVR, new diagnosis, likely secondary to above, s/p successful CV 10/28/24
CAD status post [place] with LAD PCI in 2019
Hypertension
Hyperlipidemia
Prior cervical cancer status post hysterectomy/BSO in 1993
Former tobacco use
ECHO 03/25/23: EF 55 to 60%, no regional wall motion abnormalities noted, mild TR, PAP 25 to 30 mmHg
ECHO 10/27/2024: EF 60 to 65%, no regional wall motion abnormalities noted, aortic sclerosis
Plan:
-Patient presented after N/V last week with weakness and lightheadedness. Found to have evidence of dehydration, hypokalemia as well as afib with RVR.
-Status post successful cardioversion 10/28/2024. Remains in sinus rhythm on review of telemetry overnight.
-Continue Cardizem CD 120 mg daily
-Continue Eliquis 5 mg twice daily
-No further fevers overnight. Blood cultures pending
-Echocardiogram with results as above
-PT recommended SNF. Case management following.
-Outpatient cardiac follow-up arranged
-d/w nursing
-will plan to sign off
Progress Note - Dough Puncher
Subjective
Date of Service: October 29, 2024
Reports continued weakness
Objective
Labs:
10/29/24 04:33
10/29/24 04:33
Labs
Hgb 13.0 g/dL (12.0-16.0) 10/29/24 04:33
Hct 37.2 % (37.0-47.0) 10/29/24 04:33
Plt Count 111 10^3/uL (130-400) L 10/29/24 04:33
PT 12.9 Sec (11.4-14.6) 10/26/24 12:34
INR 0.93 10/26/24 12:34
APTT Cancelled 10/27/24 10:55
Sodium 131 mmol/L (135-145) L 10/29/24 04:33
Potassium 3.6 mmol/L (3.5-5.1) 10/29/24 04:33
BUN 18 mg/dl (7-17) H 10/29/24 04:33
Creatinine 0.6 mg/dL (0.6-1.0) 10/29/24 04:33
Glucose 109 mg/dl (70-99) H 10/29/24 04:33
Vital Signs and I&O:
Vital Signs
Temp Pulse Resp BP Pulse Ox
98.2 F 68 18 121/66 94
10/29/24 08:07 10/29/24 04:21 10/29/24 08:07 10/29/24 04:21 10/29/24 08:07
Vital Signs
Temp Pulse Resp BP Pulse Ox
98.2 F 68 18 121/66 94
10/29/24 08:07 10/29/24 04:21 10/29/24 08:07 10/29/24 04:21 10/29/24 08:07
Intake & Output
10/27/24 10/28/24 10/29/24 10/30/24
07:59 07:59 07:59 07:59
Intake Total 1512.5 / 1512.5 450 / 450
Output Total 700 / 700 1650 / 1650 1200 / 1200
Balance 812.5 / 812.5 -1650 / -1650 -750 / -750
Physical Exam
Physical Exam
GEN: No distress, awake, alert, oriented x3. sitting in chair
HEENT: supple, anicteric, mmm, eomi
LUNGS: CTA B/L
CV: Reg, S1/S2, no murmur
NEURO: Gross non-focal
SKIN: Warm, pink, dry. No rash
--- NOTE | 2024-10-29 12:03 | W.PN.HOSP.TC ---
Addendum entered and electronically signed by Vangie Almazan DO 10/29/24 17:43:
I was able to discuss the patient at length with the patient's daughter , over the phone.
Plan is likely for SNF - no CM currently-will discuss Thursday
Of note, the patient went back into A.fib with RVR 5 pm-discussing with nurse who called Cardiology re: restarting IV Dilt drip.
Original Note:
Today's Communication/Plan
-
see A/P
Assessment / Plan
Assessment / Plan
79 y/o F, hx of CAD with [place], HTN, presented with SOB, fatigue, palpitations.
Patient reported 5 days had 1 episode of nausea/vomiting along with several bouts of diarrhea. Since then her GI symptoms have improved but then felt lethargic and CHRISTIANSON.
She is unable to ambulate more than 2 steps without symptoms. She reports frequent falls, no head trauma.
In ER, found to have mild FERNANDO, hypokalemia and rapid AFib - given 500 cc LR, Cardizem push and K replacement. IV heparin started.
Echo: 10/28/2024
CONCLUSIONS
Normal left ventricular chamber size. Mildly reduced left ventricular systolic
function. Global hypokinesis. Mild concentric left ventricular hypertrophy.
Left ventricular ejection fraction is 40-45%.
Normal right ventricular size and function.
Moderately dilated left atrium.
Moderately dilated right atrium.
Spontaneous echo contrast seen in the left atrial appendage. No thrombus
detected in the left atrial appendage.
Mild mitral regurgitation.
Mild to moderate tricuspid regurgitation.
DCCV 10/28
A/P:
# new onset A fib with RVR likely precipitated by recent GI illness s/p successful cardioversion on 10/28
IV Cardizem for rate control stopped-oral Cardizem started by Cardiology, patient remains in NSR
IV heparin transitioned to Eliquis 5 mg BID - continue Eliquis 5 mg PO BID
TTE/echo largely unrevealing: EF 60-65%. Diastolic function indeterminate due to atrial fibrillation. Normal right ventricular size and function. Aortic sclerosis without stenosis.
Card - plan to sign off today, w/ OP f/u arranged
# Noted fever chief vendor quality of 10/25 - fever 2/7 , no fever today
check blood Cx -follow cultures, pending at this time
Continue empiric cefepime/vanc for now , will await cultures, then consider dc abx if negative
-no vegetation seen on YESENIA
# N/V/D likely acute viral gastroenteritis, resolved
# Hemoconcentration on admission likely dehydration
# Hypotension on admission likely from dehydration
Hemoglobin 18.4 -> 13.8 >> 13.0 today, stable
s/p IVF
BP improved, stable
# Hyponatremia, Na 131 and stable currently
possible 2/2 dehydration, monitor
# Hypokalemia
repleted K , K 3.6, will give KCl 20 meq today
# Mild FERNANDO likely dehydration, resolved
SCr 1.1 to 0.5 to 0.6 today, stable
# Elevated LFT likely reactive
Trend
# Coronary artery disease status post cardiac stent
Aspirin continued
# Hyperlipidemia
Zetia/ Atorvastatin continued
# Essential hypertension
Hold lisinopril due to hypotension
DVT prophylaxis- now on Eliquis
DISPO-CM rec SNF, will discuss with daughter and CM
CODE STATUS-Full code
DW Card Dr Suarez - they will sign off, likely can transfer to tele monitoring
total time spent 51 min
Anticipated Discharge: 24 - 48 hours
Subjective/Interval History
-
Date of Service: October 29, 2024
The patient is not having complaints today. No CP, no SOB, no abdominal pain. No dysuria. Afebrile overnight and today.
Objective Data
-
Labs:
Laboratory Results
10/29/24
04:33
WBC 5.8
Hgb 13.0
Hct 37.2
Plt Count 111 L
Sodium 131 L
Potassium 3.6
Chloride 101
Carbon Dioxide 21 L
BUN 18 H
Creatinine 0.6
Glucose 109 H
Calcium 8.5
Total Bilirubin 1.2
AST 39 H
ALT 33
Alkaline Phosphatase 50
Vital Signs:
Vital Signs
Temp Pulse Resp BP Pulse Ox
97.5 F 66 18 105/63 96
10/29/24 11:30 10/29/24 11:30 10/29/24 11:30 10/29/24 11:30 10/29/24 11:30
I&O
10/28/24 10/29/24 10/30/24
06:59 06:59 06:59
Intake Total 450 / 450 240 / 240
Output Total 850 / 850 2000 / 2000 250 / 250
Balance -850 / -850 -1550 / -1550 -10 / -10
Review of Systems
-
All other systems: Reviewed and negative
Physical Exam
-
General: No Apparent Distress, Comfortable and Appears Chronically Ill
HEENT: Normocephalic, Atraumatic and Moist Mucous Membranes
Respiratory: Clear to Auscultation
Cardiac: Regular Rhythm and S1/S2
GI: Soft, Nontender and Nondistended
Musculoskeletal: No Clubbing, No Cyanosis and No Edema
Skin: Warm and Dry
Neuro: Awake, Alert and Oriented
Psych: Calm
[2024-10-29] MEDS: LIPITOR 80 MG PO (17:41)
--- NOTE | 2024-10-29 17:51 | PTCARENOTE ---
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 Upon arrival to patient's room , she was in chair. Pt placed back in bed, obtained EKG. BP 104/86. Attending and cardiology notified. Pt with no palpitations, chest pain or
shortness of breath. No new orders at this time. Will monitor.
[2024-10-30] VITALS (13 sets, daily range): BP systolic 87–113; BP diastolic 66–84
--- NOTE | 2024-10-30 00:40 | PTCARENOTE ---
Pt. remains A-fib on the monitor, rate up to the 160's with ambulation earlier in shift, has since come down to 90's-low 100's at rest. Pt. has no complaints of CP/SOB. Resting quietly.
[2024-10-30] MEDS: TYLENOL 650 MG PO (03:30)
[2024-10-30 05:23] LABS: Hematocrit 37.8 % (37.0-47.0); Hemoglobin 13.3 g/dL (12.0-16.0); Mean Corp Hgb Conc. 35.2 g/dL (33.0-37.0); Mean Corpuscular Hgb 28.5 pg (27.0-31.0); Mean Corpuscular Volume 81.1 fL (81.0-99.0); Mean Platelet Volume 12.2 fL (7.4-10.4); Platelet Count 145 10^3/uL (130-400); Red Blood Cell Count 4.66 10^6/uL (4.20-5.40); Red Cell Dist. Width 13.5 % (11.5-14.5); White Blood Cell Count 7.3 10^3/uL (4.8-10.8)
[2024-10-30 05:27] LABS: ALT (SGPT) 32 U/L (0-35); AST (SGOT) 37 U/L (14-36); Albumin 2.8 g/dl (3.5-5.0); Alkaline Phosphatase 61 U/L (38-126); Blood Urea Nitrogen 16 mg/dl (7-17); Calcium 8.4 mg/dl (8.4-10.2); Carbon Dioxide 20 mmol/L (22-30); Chloride 102 mmol/L (98-107); Estimated Creatinine Clearance 67 ml/min; Glucose 99 mg/dl (70-99); Potassium 3.6 mmol/L (3.5-5.1); Sodium 133 mmol/L (135-145); Total Bilirubin 1.1 mg/dl (0.2-1.3); Total Protein 5.4 g/dl (6.3-8.2); eGFR > 60.00
[2024-10-30] MEDS: VANCOCIN 150 IV ×2 (06:30→18:39)
[2024-10-30] MEDS: ELIQUIS 5 MG PO ×2 (08:20→19:40)
[2024-10-30] MEDS: ZETIA 10 MG PO (08:20)
[2024-10-30] MEDS: CARDIZEM CD 120 MG PO ×2 (08:20→19:39)
--- NOTE | 2024-10-30 09:18 | PHA.VAN.FU ---
Vancomycin Assessment / Plan
- Assessment
Renal Function: Stable
WBC's are: WNL
In the past 24 hrs, patient has been: Afebrile
Concomitant Antimicrobials: cefepime
- Dosing Plan
Continue: vancomycin 750 mg q12h - first dose 10/28 1800
- Monitoring Plan
Peak Level: 10/30/24 2030 - after 5th maint dose
Trough Level: 10/31/24 0530
- Follow Up
Pharmacy will continue to follow.
Vancomycin Follow UP
- -
Patient Age: 79
Patient Sex: Female
Vancomycin Day #: 3
Indication: Other
Requesting Provider: Dr. Woods
Pertinent Antimicrobial Allergies:
no pertinent antibiotic allergies
Height / Weight:
Height 5 ft 10 in
Actual Weight 55.2 kg
IBW in k.5
Pertinent Past Medical History: BMI ~ 17.5
- Vital Signs / Lab Results
Temp Pulse Resp BP Pulse Ox
97.7 F 111 18 103/74 100
10/30/24 07:50 10/30/24 07:50 10/30/24 07:50 10/30/24 07:50 10/30/24 07:50
Lab Results - Hematology
10/28/24 10/29/24 10/30/24
04:32 04:33 03:48
WBC 7.8 5.8 7.3
Lab Results - Chemistry
10/28/24 10/29/24 10/30/24
04:32 04:33 03:48
BUN 16 18 H 16
Creatinine 0.5 L 0.6 0.6
Estimated Creat Clear 67 67 67
Albumin 2.9 L 2.9 L 2.8 L
Microbiology Results
10/28/24 12:18 Blood Culture - Preliminary
Blood/Venous No Growth in 24 hours- Final report to follow
10/28/24 12:00 Blood Culture - Preliminary
Blood/Venous No Growth in 24 hours- Final report to follow
--- NOTE | 2024-10-30 10:18 | W.PN.HOSP.TC ---
Today's Communication/Plan
-
Please avoid caffeine (coffee, even if decaf, Tea, even if decaf, and chocolate.)
If rate remains elevated she may need to go back on diltiazem gtt.
Continue antibiotics until cultures fully resulted.
Assessment / Plan
Assessment / Plan
Historical summary:
79 y/o F, hx of CAD with [place], HTN, presented with SOB, fatigue, palpitations. found to have mild FERNANDO, hypokalemia and rapid AFib
Echo: 10/28/2024
CONCLUSIONS
Normal left ventricular chamber size. Mildly reduced left ventricular systolic
function. Global hypokinesis. Mild concentric left ventricular hypertrophy.
Left ventricular ejection fraction is 40-45%.
Normal right ventricular size and function.
Moderately dilated left atrium.
Moderately dilated right atrium.
Spontaneous echo contrast seen in the left atrial appendage. No thrombus
detected in the left atrial appendage.
Mild mitral regurgitation.
Mild to moderate tricuspid regurgitation.
DCCV 10/28
A/P:
1. New onset A fib with RVR likely precipitated by recent GI illness s/p cardioversion on 10/28
IV Cardizem for rate control stopped-oral Cardizem started by Cardiology, patient rate 90s to 150
IV heparin transitioned to Eliquis 5 mg BID
TTE/echo: EF 60-65%. Diastolic function indeterminate due to atrial fibrillation. Normal right ventricular size and function. Aortic sclerosis without stenosis.
Cardiology signed off yesterday, w/ OP f/u arranged
While rate is > 100 avoid caffeine (decaf coffee and decaf tea have caffeine)
Rate should be consistently below 100 to consider d/c from hospital
2. Fever on 10/25 - fever 10/28 , no fever today
check blood Cx -follow cultures, pending at this time
Continue empiric cefepime/vanc for now , will await cultures, then consider dc abx if negative once fully resulted
-no vegetation seen on YESENIA
3. N/V/D likely acute viral gastroenteritis, resolved
4. Hemoconcentration on admission likely dehydration
5. Hypotension on admission likely from dehydration
6. Hemoglobin 18.4 -> 13.8 >> 13.0 today, stable, but check again tomorrow, s/p IVF
7. Low BP, now BP improved, stable
8. Hyponatremia, stable currently - possible 2/2 dehydration, monitor
9. Hypokalemia - repleted K , K 3.6, Check daily and replete if needed
10. Mild FERNANDO likely dehydration, resolved
11. Elevated LFT likely reactive - Trend
12. Coronary artery disease status post cardiac stent - Aspirin switched to Eliquis only
13. Hyperlipidemia - Zetia/ Atorvastatin continued
14. Essential hypertension - Held lisinopril due to hypotension, on oral dilt
DVT prophylaxis- now on Eliquis
DISPO-CM rec SNF
CODE STATUS-Full code
total time spent 50 min
Anticipated Discharge: > 48 hours
Subjective/Interval History
-
Date of Service: October 30, 2024
Objective Data
-
Labs:
Laboratory Results
10/30/24
03:48
WBC 7.3
Hgb 13.3
Hct 37.8
Plt Count 145 D
Sodium 133 L
Potassium 3.6
Chloride 102
Carbon Dioxide 20 L
BUN 16
Creatinine 0.6
Glucose 99
Calcium 8.4
Total Bilirubin 1.1
AST 37 H
ALT 32
Alkaline Phosphatase 61
Vital Signs:
Vital Signs
Temp Pulse Resp BP Pulse Ox
97.7 F 102 18 103/74 100
10/30/24 07:50 10/30/24 09:00 10/30/24 07:50 10/30/24 07:55 10/30/24 07:50
I&O
10/29/24 10/30/24 10/31/24
06:59 06:59 06:59
Intake Total 450 / 450 1120 / 1120 240 / 240
Output Total 1999 2150 / 2150 700 / 700
Balance -1550 / -1550 -1030 / -1030 -460 / -460
[2024-10-30] MEDS: STERILE WATER FOR INJECTION 10 ML IV ×2 (10:28→23:10)
[2024-10-30] MEDS: MAXIPIME 1000 MG IV ×2 (10:28→23:09)
--- NOTE | 2024-10-30 10:53 | W.PN.CARDCBS ---
Today's Communication / Plan
-
In rapid atrial fibrillation overnight despite oral diltiazem
Add amiodarone for additional rate control
Continue Eliquis
Impression / Plan
-
Primary Table Games Supervisor: Dr. Anaya
Assessment:
Presentation with lightheadedness, weakness
Dehydration
FERNANDO
Hypokalemia
Hyponatremia
Elevated LFTs
Atrial fibrillation with RVR, new diagnosis, likely secondary to above, s/p successful CV 10/28/24
CAD status post [place] with LAD PCI in 2019
Hypertension
Hyperlipidemia
Prior cervical cancer status post hysterectomy/BSO in 1993
Former tobacco use
ECHO 03/25/23: EF 55 to 60%, no regional wall motion abnormalities noted, mild TR, PAP 25 to 30 mmHg
ECHO 10/27/2024: EF 60 to 65%, no regional wall motion abnormalities noted, aortic sclerosis
Plan:
-Patient presented after N/V last week with weakness and lightheadedness. Found to have evidence of dehydration, hypokalemia as well as afib with RVR.
-Status post successful cardioversion 10/28/2024, but back in AFib as of 10/29 at 5PM
-Rate remains rapid and BP is marginal
-Continue Cardizem CD 120 mg BID
-Add amiodarone for additional rate control
-Continue Eliquis 5 mg twice daily for cardioembolic ppx
-If remains in rapid Afib may need to re-attempt DCCV this week
-No further fevers overnight. Blood cultures pending. Abx per primary service
-PT recommended SNF. Case management following.
-Outpatient cardiac follow-up arranged
-d/w nursing
Progress Note - Table Games Supervisor
Subjective
Date of Service: October 30, 2024
Sinus rhythm back to rapid atrial fibrillation last night around 5 PM. Heart rates remain rapid this morning. No chest pain or shortness of breath. Reporting some weakness and fatigue.
Objective
Labs:
10/30/24 03:48
10/30/24 03:48
Labs
Hgb 13.3 g/dL (12.0-16.0) 10/30/24 03:48
Hct 37.8 % (37.0-47.0) 10/30/24 03:48
Plt Count 145 10^3/uL (130-400) D 10/30/24 03:48
PT 12.9 Sec (11.4-14.6) 10/26/24 12:34
INR 0.93 10/26/24 12:34
APTT Cancelled 10/27/24 10:55
Sodium 133 mmol/L (135-145) L 10/30/24 03:48
Potassium 3.6 mmol/L (3.5-5.1) 10/30/24 03:48
BUN 16 mg/dl (7-17) 10/30/24 03:48
Creatinine 0.6 mg/dL (0.6-1.0) 10/30/24 03:48
Glucose 99 mg/dl (70-99) 10/30/24 03:48
Vital Signs and I&O:
Vital Signs
Temp Pulse Resp BP Pulse Ox
97.7 F 102 18 103/74 100
10/30/24 07:50 10/30/24 09:00 10/30/24 07:50 10/30/24 07:55 10/30/24 07:50
Vital Signs
Temp Pulse Resp BP Pulse Ox
97.7 F 102 18 103/74 100
10/30/24 07:50 10/30/24 09:00 10/30/24 07:50 10/30/24 07:55 10/30/24 07:50
Intake & Output
10/28/24 10/29/24 10/30/24 10/31/24
06:59 06:59 06:59 06:59
Intake Total 450 / 450 1120 / 1120 240 / 240
Output Total 850 / 850 1999 / 1999 2150 / 215 700 / 700
Balance -850 / -850 -1550 / -1550 -1030 / -1030 -460 / -460
Physical Exam
Physical Exam
Gen: NAD, AAOx3
HEENT: NC/AT, sclera anicteric
Neck: No JVD
CV: Irregularly irregular, NL s1/s2, no M/R/G
Lungs: CTAB
Abd: S/ND
Ext: No LE edema
Skin: Warm, dry
Neuro: Non-focal
[2024-10-30] MEDS: PACERONE 400 MG PO ×3 (11:01→23:10)
--- NOTE | 2024-10-30 11:53 | PTCARENOTE ---
10/30/24 Received patient in bed resting comfortably. Pt AAO x3. Pt on laboratory monitor reading uncontrolled A fib. BP stable. Pt with no complaints of chest pain, shortness of breath, palpitations or dizziness. Cardiology made aware of patients heart
rate. 400 mg PO Amio added to pt's regimen. Will monitor throughout shift.
[2024-10-30] MEDS: LIPITOR 80 MG PO (18:39)
--- NOTE | 2024-10-30 20:24 | PTCARENOTE ---
Rec'd pt at change of shift. PT AAO*3, VSS, and in AFib on TELE monitor with HR in the 90-110's. Pt denies any pain or discomfort. Pt updated on plan of care. Pt agreed to ambulate only with staff assistance. Pt resting with call fontenot in reach
and plan of care ongoing. See mar and flowchart for complete pt care and assessment.
[2024-10-30 22:17] LABS: Vancomycin Peak 16.2 ug/ml (18-26)
[2024-10-31 03:54] VITALS: BP 99/65
[2024-10-31] MEDS: VANCOCIN 150 IV (05:56)
[2024-10-31 06:07] VITALS: BMI 17.8
[2024-10-31 06:09] LABS: Hemoglobin 12.5 g/dL (12.0-16.0); Mean Corp Hgb Conc. 34.7 g/dL (33.0-37.0); Mean Corpuscular Hgb 28.2 pg (27.0-31.0); Mean Corpuscular Volume 81.1 fL (81.0-99.0); Mean Platelet Volume 10.7 fL (7.4-10.4); Platelet Count 182 10^3/uL (130-400); Red Blood Cell Count 4.44 10^6/uL (4.20-5.40); Red Cell Dist. Width 13.7 % (11.5-14.5); White Blood Cell Count 8.2 10^3/uL (4.8-10.8)
[2024-10-31 06:45] LABS: ALT (SGPT) 30 U/L (0-35); AST (SGOT) 35 U/L (14-36); Albumin 2.6 g/dl (3.5-5.0); Alkaline Phosphatase 58 U/L (38-126); Blood Urea Nitrogen 17 mg/dl (7-17); Calcium 8.3 mg/dl (8.4-10.2); Carbon Dioxide 21 mmol/L (22-30); Chloride 103 mmol/L (98-107); Estimated Creatinine Clearance 69 ml/min; Glucose 103 mg/dl (70-99); Potassium 3.7 mmol/L (3.5-5.1); Sodium 133 mmol/L (135-145); Total Bilirubin 0.8 mg/dl (0.2-1.3); Total Protein 5.3 g/dl (6.3-8.2); eGFR > 60.00
[2024-10-31 06:52] VITALS: BP 106/83
[2024-10-31 07:05] LABS: Vancomycin Trough 10.2 ug/ml (5-20)
[2024-10-31] MEDS: PACERONE 400 MG PO ×3 (08:04→22:08)
[2024-10-31] MEDS: ZETIA 10 MG PO (08:04)
[2024-10-31] MEDS: ELIQUIS 5 MG PO ×2 (08:04→19:45)
[2024-10-31] MEDS: CARDIZEM CD 120 MG PO ×2 (08:04→19:45)
--- NOTE | 2024-10-31 08:28 | PHA.VAN.FU ---
Vancomycin Assessment / Plan
- Assessment
Renal Function: Stable
WBC's are: WNL
In the past 24 hrs, patient has been: Afebrile
Concomitant Antimicrobials: cefepime
- Assessment - Therapeutic Drug Monitoring
Extrapolated Cmax (mcg/mL): 18.3
Peak level was drawn: Appropriately (drawn ~2H after end of previous infusion)
Extrapolated Cmin (mcg/mL): 9.7
Trough Drawn: Appropriately
Levels were drawn: At steady state (levels drawn after 5th maintenance dose)
Calculated AUC (mcg*h/mL): 326
Calculated ke: 0.0572
Calculated half life (H): 12.1
Calculated Vd (L): 80 (~1.4 L/kg , ~1.2 L/kg IBW)
Calculated Vanc CL (ml/min): 77
- Dosing Plan
Adjust Regimen to: Vanc 1000mg Q12H
New Regimen Predicts: AUC (447), Peak (25), Trough (13.3)
- Monitoring Plan
No level(s) ordered at this time: repeat levels in next few days to monitor with borderline half-life
- Follow Up
Pharmacy will continue to follow.
Vancomycin Follow UP
- -
Patient Age: 79
Patient Sex: Female
Vancomycin Day #: 4
Indication: Other
Requesting Provider: Dr. Woods
Pertinent Antimicrobial Allergies:
no pertinent antibiotic allergies
Height / Weight:
Height 5 ft 10 in
Actual Weight 56.2 kg
IBW in k.5
Pertinent Past Medical History: BMI ~ 17.5
- Vital Signs / Lab Results
Temp Pulse Resp BP Pulse Ox
97.8 F 111 20 99/65 95
10/31/24 06:52 10/31/24 06:00 10/31/24 06:52 10/31/24 03:54 10/31/24 06:52
Lab Results - Hematology
10/29/24 10/30/24 10/31/24
04:33 03:48 05:49
WBC 5.8 7.3 8.2
Lab Results - Chemistry
10/29/24 10/30/24 10/31/24
04:33 03:48 05:49
BUN 18 H 16 17
Creatinine 0.6 0.6 0.6
Estimated Creat Clear 67 67 69
Albumin 2.9 L 2.8 L 2.6 L
Microbiology Results
10/28/24 12:18 Blood Culture - Preliminary
Blood/Venous No Growth in 48 hours- Final report to follow
10/28/24 12:00 Blood Culture - Preliminary
Blood/Venous No Growth in 48 hours- Final report to follow
Therapeutic Drug Monitoring
Vancomycin Peak 16.2 ug/ml (18-26) L 10/30/24 21:44
Vancomycin Trough 10.2 ug/ml (5-20) 10/31/24 05:49
[2024-10-31] MEDS: MAXIPIME 1000 MG IV ×2 (09:07→22:08)
[2024-10-31] MEDS: STERILE WATER FOR INJECTION 10 ML IV ×2 (09:07→22:08)
--- NOTE | 2024-10-31 10:19 | W.PN.CARDCBS ---
Addendum entered and electronically signed by Corazon Hitchcock DO 10/31/24 11:32:
I saw and examined the patient.
The Business Services Officer's note was reviewed and I agree with the note.
Comment: Patient was seen and examined sitting out of bed to chair. Continues to report some weakness but denies dizziness/lightheadedness. Appetite is good without further nausea or vomiting. No further loose stools and denies abdominal pain.
Denies chest pain or pressure.
General: No acute distress, AAOX3
Heart: Irregularly irregular. Positive S1-S2. No murmurs
Lungs: Bronchovesicular breath sounds but clear bilaterally.
Abd: Positive BS, NT/ND, neg rebound/rigidity/guarding
Ext: No edema
Plan:
Admitted with viral gastroenteritis/dehydration/hyponatremia/hypokalemia and acute renal insufficiency
-GI symptoms have fortunately improved
-No further fevers since 10/28/2024; no vegetation seen on YESENIA.
-Blood cultures no growth to date 10/28/2024, influenza negative, C. difficile negative. Stool cultures negative. COVID-negative
- On empiric antibiotics per primary.
New rapid atrial fibrillation diagnosed in the setting of fever and viral gastroenteritis/dehydration 10/26/2024
-Continue uninterrupted continue Eliquis 5 mg twice daily initiated 10/27/2024
-Status post YESENIA cardioversion 10/28/2024 to sinus rhythm
-YESENIA noted New reduction in LV systolic function estimated 40-45%. There is spontaneous echo contrast in left atrial appendage without thrombus. Biatrial dilatation. Mild mitral regurgitation and mild to moderate tricuspid regurgitation.
-Unfortunately, atrial fibrillation recurred the evening of 10/30/2024 and has persisted
-Continue new diltiazem CD1 120 mg twice daily and new amiodarone 400 mg 3 times daily initiated 10/30/2024
-We discussed amiodarone as a bridge to outpatient EP evaluation for ablation [TSH within normal]
-Check EKG and monitor QT interval
-Plan for repeat DC cardioversion tomorrow 11/01/2024
-Would repeat echocardiogram in 3 months as an outpatient once in sinus rhythm to reassess EF
History of known coronary artery disease with remote WA and LAD PCI in 2019
-Would consider outpatient ischemic evaluation with a stress test
-Continue medical therapy including atorvastatin and ezetimibe. Lipid profile 10/27/2024: Triglycerides 147, total cholesterol 104, LDL 57, HDL 18.
PT/OT evaluation. Patient is using a walker during this hospitalization and was previously independent in her ADLs.
Original Note:
Today's Communication / Plan
-
CV in AM
Cont amiodarone as a bridge to possible ablation
EP eval as an outpatient for possible ablation
Impression / Plan
-
PCP: Dr. Katz
Primary Head Of Ict: Dr. Anaya
Impression:
Admitted with lightheadedness, weakness and new, rapid Afib 10/26/24
Dehydration
FERNANDO
Hypokalemia
Hyponatremia
Elevated LFTs
Paroxysmal Afib, rapid on admission, new diagnosis 10/26/24
s/p successful YESENIA/CV 10/28/24
recurrence of Afib 10/29/24 PM
amiodarone load starting 10/30/24
New start to chronic to Eliquis OAC
CAD status post WA with LAD PCI in 2019
Hypertension
Hyperlipidemia
Prior cervical cancer status post hysterectomy/BSO in 1993
Former tobacco use
ECHO 03/25/23: EF 55 to 60%, no regional wall motion abnormalities noted, mild TR, PAP 25 to 30 mmHg
ECHO 10/27/24: EF 60 to 65%, no regional wall motion abnormalities noted, aortic sclerosis
Plan:
-Patient was admitted with gastroenteritis symptoms and new rapid Afib last Thursday. Patient had successful YESENIA/CV on 10/28/24, but recurred with Afib by Thursday evening.
-Amiodarone 400 mg TID started 10/30/24 AM. Patient has received a 1.6 gram load as of 10/31/24 AM. Plan is for amiodarone as a bridge to ablation.
-New to Cardizem CD 120 mg BID as well.
-Also new to Eliquis 5 mg BID (age 79, Cre 0.6, wt 56.2 kg). No evidence of JUAN thrombus on YESNEIA 10/28/24.
-Plan is for another attempt at CV on 11/01/24 and then d/c to home to follow up with EP as an outpatient for possible ablation.
-Outpatient dose of lisinopril on hold to allow for addition of Cardizem CD to help with rate control efforts.
-EF 60-65% by echo
-Hospitalist attending notes reviewed and patient with fever on 10/28/23. Negative for COVID and influenza. Blood cultures without growth. Empiric cefepime and vancomycin started and stopped.
-PT recommended SNF, but patient considering going home with VN and friends close by. Case management following.
Progress Note - Head Of Ict
Subjective
Date of Service: October 31, 2024
Patient is worried about amiodarone. No palpitations
Objective
Labs:
10/31/24 05:49
10/31/24 05:49
Labs
Hgb 12.5 g/dL (12.0-16.0) 10/31/24 05:49
Hct 36.0 % (37.0-47.0) L 10/31/24 05:49
Plt Count 182 10^3/uL (130-400) D 10/31/24 05:49
PT 12.9 Sec (11.4-14.6) 10/26/24 12:34
INR 0.93 10/26/24 12:34
APTT Cancelled 10/27/24 10:55
Sodium 133 mmol/L (135-145) L 10/31/24 05:49
Potassium 3.7 mmol/L (3.5-5.1) 10/31/24 05:49
BUN 17 mg/dl (7-17) 10/31/24 05:49
Creatinine 0.6 mg/dL (0.6-1.0) 10/31/24 05:49
Glucose 103 mg/dl (70-99) H 10/31/24 05:49
Vital Signs and I&O:
Vital Signs
Temp Pulse Resp BP Pulse Ox
97.8 F 119 20 106/83 95
10/31/24 06:52 10/31/24 08:00 10/31/24 06:52 10/31/24 06:52 10/31/24 06:52
Vital Signs
Temp Pulse Resp BP Pulse Ox
97.8 F 119 20 106/83 95
10/31/24 06:52 10/31/24 08:00 10/31/24 06:52 10/31/24 06:52 10/31/24 06:52
Intake & Output
10/29/24 10/30/24 10/31/24 11/01/24
06:59 06:59 06:59 06:59
Intake Total 450 / 450 1600 / 1600 240 / 240
Output Total 2000 / 1999 3250 / 3250 2300 / 2300 500 / 500
Balance -1550 / -1550 -1650 / -1650 -2060 / -2060 -500 / -500
Physical Exam
Physical Exam
GEN: AAO x3
HEENT: EOMI
LUNGS: RA. No audible wheeze.
CV: Afib on tele.
NEURO: Gross non-focal
SKIN: No rash
[2024-10-31 11:03] VITALS: BP 102/71
--- NOTE | 2024-10-31 11:17 | PTCARENOTE ---
Rec'd pt at handoff. Tele- Afib. HR 80-110s. Assessment completed as documented. Pt has no complaints at this time. Plan of care reviewed w/ pt. Verbalizes understanding. Pt is currently in bed; call po w/in reach.
--- NOTE | 2024-10-31 11:20 | W.PN.HOSP.TC ---
Today's Communication/Plan
-
NPO PMN for CV in am
dc vancomycin
await final culture data
po amio/eliquis
monitor HR
SNF on DC
Assessment / Plan
Assessment / Plan
Historical summary:
79 y/o F, hx of CAD with MS, HTN, presented with SOB, fatigue, palpitations. found to have mild FERNANDO, hypokalemia and rapid AFib
A/P:
#New onset A fib with RVR likely precipitated by recent GI illness s/p cardioversion on 10/28
IV Cardizem for rate control stopped-oral Cardizem started by Cardiology, patient rate 90s to 150
IV heparin transitioned to Eliquis 5 mg BID
TTE/echo: EF 60-65%. Diastolic function indeterminate due to atrial fibrillation. Normal right ventricular size and function. Aortic sclerosis without stenosis.
Started on amiodarone loading dose.
per cards-plan for repeat cardioversion in am
#Single episode of Fever on 10/25 possibly due to viral
As patient had multiple gastrointestinal symptoms prior to arrival to the hospital
Blood cultures are negative so far.
no vegetation seen on YESENIA
Influenza negative. COVID-negative.
C. difficile negative. Stool studies negative.
DC vancomycin. Continue cefepime for 24 more hours. Can probably de-escalate antibiotics once cultures blood finalizes
N/V/D likely acute viral gastroenteritis, resolved
Hemoconcentration on admission likely dehydration
Hypotension on admission likely from dehydration
BP stablized
Hyponatremia, stable currently - possible 2/2 dehydration, monitor
Hypokalemia - repleted K , K 3.6, Check daily and replete if needed
Mild FERNANDO likely dehydration, resolved
Elevated LFT likely reactive - Trend
Coronary artery disease status post cardiac stent - Aspirin switched to Eliquis only
Hyperlipidemia - Zetia/ Atorvastatin continued
Essential hypertension - Held lisinopril due to hypotension, on oral dilt
DVT prophylaxis- now on Eliquis
DISPO-CM rec SNF
CODE STATUS-Full code
Anticipated Discharge: > 48 hours
Subjective/Interval History
-
Date of Service: October 31, 2024
states she is tired and wants to get some sleep
afebrile
Objective Data
-
Labs:
Laboratory Results
10/31/24
05:49
WBC 8.2
Hgb 12.5
Hct 36.0 L
Plt Count 182 D
Sodium 133 L
Potassium 3.7
Chloride 103
Carbon Dioxide 21 L
BUN 17
Creatinine 0.6
Glucose 103 H
Calcium 8.3 L
Total Bilirubin 0.8
AST 35
ALT 30
Alkaline Phosphatase 58
Vital Signs:
Vital Signs
Temp Pulse Resp BP Pulse Ox
97.8 F 91 20 102/71 95
10/31/24 06:52 10/31/24 11:03 10/31/24 06:52 10/31/24 11:03 10/31/24 06:52
I&O
10/30/24 10/31/24 11/01/24
06:59 06:59 06:59
Intake Total 1600 / 1600 240 / 240
Output Total 3250 / 3250 2300 / 2300 500 / 500
Balance -1650 / -1650 -2060 / -2060 -500 / -500
Physical Exam
-
General: No Apparent Distress, Comfortable and Appears Chronically Ill
HEENT: Normocephalic, Atraumatic and Moist Mucous Membranes
Respiratory: Clear to Auscultation
Cardiac: S1/S2 and Irregular Rhythm
GI: Soft, Nontender and Nondistended
Musculoskeletal: No Clubbing, No Cyanosis and No Edema
Skin: Warm and Dry
Neuro: Awake, Alert and Oriented
Psych: Calm
Data Reviewed
-
Total Time Spent with Patient (in minutes): 55
--- NOTE | 2024-10-31 14:52 | CM ---
Pricing on Eliquis through the patient's [employer], ID# [id number], is $585. The patient has a $590 deductible, once that is met the patient will pay 25% of cost. Patient is agreeable to cost. I placed a free 30 day coupon in the patient's red
discharge folder.
--- NOTE | 2024-10-31 14:54 | CM ---
Chart reviewed. Patient is independent of ADLS, lives alone in a 3 STH, 0 XIN, 0 DME. Patient has 2 tenants living on the property, and friend Wendy is 15 min away. PT evaluation recommending SNF. I spoke to patient and patient told me her
tenants are nurses at [email or web address]. Patient agreeable to go to [facility]. Telephone call placed to Wendy, patients friend to discuss plan of care. Referral sent to [facility]. Plan is for the patient to go to SNF when medically stable. CM to follow.
[2024-10-31 16:03] VITALS: BP 112/64
[2024-10-31] MEDS: LIPITOR 80 MG PO (17:51)
--- NOTE | 2024-10-31 18:29 | PTCARENOTE ---
Pt transferred from IVU to room 336-01. Report given to Najma MARC. Belongings collected and sent w/ pt.
[2024-10-31 19:04] VITALS: BP 111/88
--- NOTE | 2024-10-31 19:08 | PTCARENOTE ---
0 Pt received as a transferred from IVU via wheelchair, accompanied by nurse and tech from IVU. Pt oriented to staff, environment and call light system. Personal items and call light within reach. Pt ambulated from wheelchair to bed with
steady gait and stand by assistance.
[2024-10-31 23:25] VITALS: BP 125/73
[2024-11-01 03:10] VITALS: BP 122/79
[2024-11-01 07:27] VITALS: BP 131/77
[2024-11-01] MEDS: ELIQUIS 5 MG PO ×2 (07:56→20:52)
[2024-11-01] MEDS: PACERONE 400 MG PO ×3 (07:56→20:53)
[2024-11-01] MEDS: ZETIA 10 MG PO (07:56)
[2024-11-01] MEDS: CARDIZEM CD 120 MG PO ×2 (07:56→20:52)
[2024-11-01] MEDS: MAXIPIME 1000 MG IV (10:07)
[2024-11-01] MEDS: STERILE WATER FOR INJECTION 10 ML IV (10:08)
--- NOTE | 2024-11-01 10:48 | W.PN.HOSP.TC ---
Today's Communication/Plan
-
CV today
cont w/cardizem/amiodarone
cont eliquis
monitor HR post CV
SNF on dc
Assessment / Plan
Assessment / Plan
Historical summary:
79 y/o F, hx of CAD with MA, HTN, presented with SOB, fatigue, palpitations. found to have mild FERNANDO, hypokalemia and rapid AFib
A/P:
#New onset A fib with RVR likely precipitated by recent GI illness s/p cardioversion on 10/28
IV Cardizem for rate control stopped-oral Cardizem started by Cardiology,
IV heparin transitioned to Eliquis 5 mg BID
TTE/echo: EF 60-65%. Diastolic function indeterminate due to atrial fibrillation. Normal right ventricular size and function. Aortic sclerosis without stenosis.
Started on amiodarone loading dose.
per cards-plan for repeat cardioversion later today
#Single episode of Fever on 10/25 possibly due to viral
As patient had multiple gastrointestinal symptoms prior to arrival to the hospital
Blood cultures are negative so far.
no vegetation seen on YESENIA
Influenza negative. COVID-negative.
C. difficile negative. Stool studies negative.
DC vancomycin. DC further cefepime. Monitor off antibiotics.
No leukocytosis.
N/V/D likely acute viral gastroenteritis, resolved
Hemoconcentration on admission likely dehydration
Hypotension on admission likely from dehydration
BP stablized
Tolerating diet.
Hyponatremia, stable currently - possible 2/2 dehydration, monitor
Hypokalemia - repleted K , K 3.6, Check daily and replete if needed
Mild FERNANDO likely dehydration, resolved
Elevated LFT likely reactive - Trend
Coronary artery disease status post cardiac stent - Aspirin switched to Eliquis only
Hyperlipidemia - Zetia/ Atorvastatin continued
Essential hypertension - Held lisinopril due to hypotension, on oral dilt
Mild thrombocytopenia likely secondary to gastroenteritis. Resolved.
Hx of tinnitus.
DVT prophylaxis- now on Eliquis
DISPO-CM rec SNF on discharge
CODE STATUS-Full code
Discussed with patient daughter at bedside in detail. All questions were answered to her satisfaction.
Anticipated Discharge: 24 - 48 hours
Subjective/Interval History
-
Date of Service: November 01, 2024
remains in afib
states slept well last night
Objective Data
-
Vital Signs:
Vital Signs
Temp Pulse Resp BP Pulse Ox
98 F 102 16 131/77 96
11/01/24 07:27 11/01/24 07:27 11/01/24 07:27 11/01/24 07:27 11/01/24 07:27
I&O
10/31/24 11/01/24 11/02/24
06:59 06:59 06:59
Intake Total 240 / 240 780 / 780
Output Total 2300 / 2300 1650 / 1650
Balance -2060 / -2060 -870 / -870
Physical Exam
-
General: No Apparent Distress, Comfortable and Appears Chronically Ill
HEENT: Normocephalic, Atraumatic and Moist Mucous Membranes
Respiratory: Clear to Auscultation
Cardiac: S1/S2 and Irregular Rhythm
GI: Soft, Nontender and Nondistended
Musculoskeletal: No Clubbing, No Cyanosis and No Edema
Skin: Warm and Dry
Neuro: Awake, Alert and Oriented
Psych: Calm
Data Reviewed
-
Total Time Spent with Patient (in minutes): 55
[2024-11-01 11:04] VITALS: BP 128/77
--- NOTE | 2024-11-01 13:14 | W.PN.CARDCBS ---
Addendum entered and electronically signed by Tramaine Rios DO 11/01/24 15:24:
I saw and examined the patient.
The Motor Rebuilder's note was reviewed and I agree with the note.
Comment:
Plan:
s/p successful cardioversion today.
Cont amiodarone 200 mg BID at d/c for one month and then daily
Eventual PVI
EP follow up arranged.
Original Note:
Today's Communication / Plan
-
CV today
Amiodarone as a bridge to eventual outpatient ablation
EP appt arranged
Impression / Plan
-
PCP: Dr. Katz
Primary Laundry Housekeeping Aide: Dr. Anaya
Impression:
Admitted with lightheadedness, weakness and new, rapid Afib 10/26/24
Dehydration
FERNANDO
Hypokalemia
Hyponatremia
Elevated LFTs
Paroxysmal Afib, rapid on admission, new diagnosis 10/26/24
s/p successful YESENIA/CV 10/28/24
recurrence of Afib 10/29/24 PM
amiodarone load starting 10/30/24
New start to chronic to Eliquis OAC
CAD status post [place] with LAD PCI in 2019
Hypertension
Hyperlipidemia
Prior cervical cancer status post hysterectomy/BSO in 1993
Former tobacco use
ECHO 03/25/23: EF 55 to 60%, no regional wall motion abnormalities noted, mild TR, PAP 25 to 30 mmHg
ECHO 10/27/24: EF 60 to 65%, no regional wall motion abnormalities noted, aortic sclerosis
Plan:
-Remains in Afib and plan is for CV 11/01/24
-Patient was admitted with gastroenteritis symptoms and new rapid Afib last Thursday. Patient had successful YESENIA/CV on 10/28/24, but recurred with Afib by Thursday evening.
-Amiodarone 400 mg TID started 10/30/24 AM. Patient has received a 2.8 gram load as of 11/01/24 AM. Plan is for amiodarone as a bridge to ablation.
-New to Cardizem CD 120 mg BID as well.
-Also new to Eliquis 5 mg BID (age 79, Cre 0.6, wt 56.2 kg). No evidence of JUAN thrombus on YESENIA 10/28/24.
-Outpatient dose of lisinopril on hold to allow for addition of Cardizem CD to help with rate control efforts.
-EF 60-65% by echo
-Hospitalist attending notes reviewed and patient with fever on 10/28/23. Negative for COVID and influenza. Blood cultures without growth. Empiric cefepime and vancomycin started and stopped.
-PT recommended SNF, but patient considering going home with VN and friends close by. Case management following.
-Outpatient EP follow up arranged
Progress Note - Laundry Housekeeping Aide
Subjective
Date of Service: November 01, 2024
No chest pain
Objective
Labs:
10/31/24 05:49
10/31/24 05:49
Labs
Hgb 12.5 g/dL (12.0-16.0) 10/31/24 05:49
Hct 36.0 % (37.0-47.0) L 10/31/24 05:49
Plt Count 182 10^3/uL (130-400) D 10/31/24 05:49
PT 12.9 Sec (11.4-14.6) 10/26/24 12:34
INR 0.93 10/26/24 12:34
APTT Cancelled 10/27/24 10:55
Sodium 133 mmol/L (135-145) L 10/31/24 05:49
Potassium 3.7 mmol/L (3.5-5.1) 10/31/24 05:49
BUN 17 mg/dl (7-17) 10/31/24 05:49
Creatinine 0.6 mg/dL (0.6-1.0) 02/10/25 05:49
Glucose 103 mg/dl (70-99) H 10/31/24 05:49
Vital Signs and I&O:
Vital Signs
Temp Pulse Resp BP Pulse Ox
97.7 F 87 18 128/77 95
11/01/24 11:04 11/01/24 11:04 11/01/24 11:04 11/01/24 11:04 11/01/24 11:04
Vital Signs
Temp Pulse Resp BP Pulse Ox
97.7 F 87 18 128/77 95
11/01/24 11:04 11/01/24 11:04 11/01/24 11:04 11/01/24 11:04 11/01/24 11:04
Intake & Output
10/30/24 10/31/24 11/01/24 11/02/24
06:59 06:59 06:59 06:59
Intake Total 1600 / 1600 240 / 240 780 / 780
Output Total 3250 / 3250 2300 / 2300 1650 / 1650
Balance -1650 / -1650 -2060 / -2060 -870 / -870
Physical Exam
Physical Exam
GEN: AAO x3
HEENT: EOMI
LUNGS: RA. No audible wheeze.
CV: Afib on tele.
NEURO: Gross non-focal
SKIN: No rash
--- NOTE | 2024-11-01 13:20 | ITS.CL.CARDI ---
R D Internship - Cardioversion
Cardioversion
Procedure Report:
Date of Procedure: Nov 01 2024
Procedure: Cardioversion
Indication: Symptomatic atrial fibrillation
Performing Physician: Tramaine Rios DO [facility]
Technique: The patient was brought to the holding area. Signed informed consent was obtained. A time out was called and performed. The patient was anesthetized by the anesthesia service. Anticoagulation status was reviewed and appropriate. R2 pads
were placed anteriorly and posteriorly. A 200 J synchronized biphasic shock restored normal sinus rhythm without significant bradycardia. There were no complications.
Conclusion: Uncomplicated cardioversion from atrial fibrillation to sinus rhythm.
Recommendation: Routine post cardioversion care. Continue superintendent container terminal anticoagulation.
[2024-11-01 15:12] VITALS: BP 116/64
[2024-11-01] MEDS: LIPITOR 80 MG PO (17:32)
--- NOTE | 2024-11-01 17:42 | CM ---
Addendum entered by Marilyn Her RN 11/02/24 12:26:
Friend Wendy will drive pt to [facility] . Address given .
Addendum entered by Marilyn Her RN 11/02/24 11:08:
entered order for discharge.
IMM reviewed signed on chart.
[facility]
report [phone]
fax [phone]
To [facility]
Original Note:
Spoke with Marbella at [facility] .
CM to call in am for a [facility] bed.
Spoke with friend Wendy [phone] she and t are in agreement with [facility].
PLAn To [facility] at de
[2024-11-01 19:35] VITALS: BP 130/73
[2024-11-01 23:10] VITALS: BP 112/63
[2024-11-02 03:50] VITALS: BP 127/63
[2024-11-02 07:49] VITALS: BP 138/68
[2024-11-02] MEDS: CARDIZEM CD 120 MG PO (08:32)
[2024-11-02] MEDS: ZETIA 10 MG PO (08:32)
[2024-11-02] MEDS: PACERONE 400 MG PO (08:32)
[2024-11-02] MEDS: ELIQUIS 5 MG PO (08:32)
--- NOTE | 2024-11-02 10:48 | W.PN.HOSP.TC ---
Today's Communication/Plan
-
SNF
Assessment / Plan
Assessment / Plan
Historical summary:
79 y/o F, hx of CAD with AL, HTN, presented with SOB, fatigue, palpitations. found to have mild FERNANDO, hypokalemia and rapid AFib
A/P:
#New onset A fib with RVR likely precipitated by recent GI illness s/p cardioversion on 10/28
IV Cardizem for rate control stopped-oral Cardizem started by Cardiology,
IV heparin transitioned to Eliquis 5 mg BID
TTE/echo: EF 60-65%. Diastolic function indeterminate due to atrial fibrillation. Normal right ventricular size and function. Aortic sclerosis without stenosis.
Status post cardioversion once again on 11/01/2024. Patient converted to normal sinus rhythm
Discussed with cardiology on 11/01 post cardioversion that patient need to continue loading dose of amiodarone for 2 weeks twice daily and then daily.
Cardiology signed off.
Patient to follow-up with her primary telegraph equipment maintainer Dr. Tran
#Single episode of Fever on 10/25 possibly due to viral
As patient had multiple gastrointestinal symptoms prior to arrival to the hospital
Blood cultures are negative so far.
no vegetation seen on YESENIA
Influenza negative. COVID-negative.
C. difficile negative. Stool studies negative.
DC vancomycin. DC further cefepime. Monitor off antibiotics.
No leukocytosis.
N/V/D likely acute viral gastroenteritis, resolved
Hemoconcentration on admission likely dehydration
Hypotension on admission likely from dehydration
BP stablized
Tolerating diet.
Hyponatremia, stable currently - possible 2/2 dehydration, monitor
Hypokalemia - repleted K ,
Mild FERNANDO likely dehydration, resolved
Elevated LFT likely reactive - Trend resolved
Coronary artery disease status post cardiac stent - Aspirin switched to Eliquis only
Hyperlipidemia - Zetia/ Atorvastatin continued
Essential hypertension - Held lisinopril due to hypotension, on oral dilt
Mild thrombocytopenia likely secondary to gastroenteritis. Resolved.
Hx of tinnitus.
DVT prophylaxis- now on Eliquis
DISPO-CM rec SNF on discharge
CODE STATUS-Full code
Discussed with patient daughter at bedside in detail on 11/01 and 11/01. All questions were answered to her satisfaction.
Dispo-SNF today. Patient and daughter wants to talk to case management they are aware.
More than 30 minutes spent in discharge including
Final examination of the patient
Summarizing hospital stay
Instructions for continuing care to all relevant caregivers
Preparation of discharge records, prescriptions, and referral forms
Total time spent (in minutes): 52
Anticipated Discharge: Today
Subjective/Interval History
-
Date of Service: November 02, 2024
Patient converted to normal sinus rhythm post cardioversion
Remains in normal sinus rhythm
States she is hungry and wants to eat
Objective Data
-
Vital Signs:
Vital Signs
Temp Pulse Resp BP Pulse Ox
97.6 F 66 16 138/68 98
11/02/24 07:49 11/02/24 07:49 11/02/24 07:49 11/02/24 07:49 11/02/24 07:49
I&O
11/01/24 11/02/24 11/03/24
06:59 06:59 06:59
Intake Total 780 / 780 660 / 660
Output Total 1650 / 1650
Balance -870 / -870 660 / 660
Physical Exam
-
General: No Apparent Distress, Comfortable and Cachectic
HEENT: Normocephalic, Atraumatic and Moist Mucous Membranes
Cardiac: Regular Rhythm
GI: Nondistended
Musculoskeletal: No Clubbing, No Cyanosis and No Edema
Skin: Warm and Dry
Neuro: Awake, Alert, Oriented, AO x 3 and No Motor Deficits
Psych: Calm
--- NOTE | 2024-11-02 10:53 | W.DCSUMMARY ---
Discharge Summary
Discharge Data
Date of Admission: 10/26/24
Date of Discharge: 11/02/24
-
Pending Results: No
Hospital Course
79 y/o F, hx of CAD with WI, HTN, presented with SOB, fatigue, palpitations. found to have mild FERNANDO, hypokalemia and rapid AFib. Patient was started on IV Cardizem and IV heparin infusion. Heparin was transitioned to Eliquis. IV Cardizem was
transition off to p.o. Cardizem. Patient was also started on amiodarone. Patient underwent cardioversion on 10/28 which was unsuccessful as patient reverted back to atrial fibrillation. With the amiodarone loading dose patient underwent
cardioversion again on 11/01 and patient remained in normal sinus rhythm. TTE/echo: EF 60-65%. Diastolic function indeterminate due to atrial fibrillation. Normal right ventricular size and function. Aortic sclerosis without stenosis. Single episode
of Fever on 10/25 possibly due to viral gastroenteritis. Patient usually was started on broad-spectrum antibiotics which was discontinued. Patient culture data was negative. Patient electrolytes were monitored and repleted.
Discharge Plan
-
Patient Disposition: Fpc/SNF
Discharge Diagnosis/Procedures: Paroxysmal atrial fibrillation (Afib), successful transesophageal echocardiogram and cardioversion 10/28/24, recurrence of Afib on 10/29/23 followed by amiodarone loading and another successful cardioversion on 11/01/24
Condition: Fair
Diet: Regular
Activity: Other activity
Driving Restrictions: No driving for 24 hours
Bathing Restrictions: None
Stand Alone Forms: DC Instructions- Cath/EP Lab
Referrals:
Keeley Arellano CRNP [Specified Professional Personl] - 11/10/24 1:40 pm (You have a cardiology follow-up appointment at the [facility] with Dr. Anaya's nurse practitionerKeeley. Please call with questions)
Andrew Katz MD [Family Provider] - in less than 1 week
Andrew Pelaez DO [Active] - 11/07/24 9:40 am (You have an appt to see Dr. Anaya's partner, Dr. Andrew Pelaez, to discuss Afib and possible ablation on 11/07/24 at 9:40 AM at the [place] office. Please call [phone] if you need to
reschedule.)
Additional Discharge Medication Instructions: -Take amiodarone 200 mg twice a day for 2 weeks (until 11/16/24) and then reduce to 200 mg once a day thereafter.
Lisinopril 10mg and aspirin 81 mg was discontinued
Prescriptions:
New
amiodarone 200 mg tablet
200 mg PO BID Qty: 28 0RF
amiodarone 200 mg tablet
200 mg PO DAILY Qty: 30 11RF
diltiazem HCl 120 mg Capsule,Extended Release 24hr
120 mg PO BID 30 Days Qty: 60 0RF
Eliquis 5 mg Tablet
5 mg PO BID 30 Days Qty: 60 0RF
Continued
atorvastatin 80 MG tablet
80 mg PO QPM Qty: 30 5RF
acetaminophen [Tylenol] 325 mg Tablet
650 mg PO Q6HPRN PRN (Reason: mild pain)
ezetimibe [Zetia] 10 mg Tablet
10 mg PO DAILY
Discontinued
lisinopril 10 MG tablet
10 mg PO DAILY Qty: 30 5RF
aspirin 81 MG tablet,chewable
81 mg PO DAILY 0RF
Discharge Orders:
Discharge Patient (As Directed); Ordered 11/02/24
Ordered By: Akbar Ivan
Care Plan Goals
Care Plan Goals:
Problem: Readiness for enhanced knowledge related to diagnosis and treatment plan
Goal: Understand your diagnosis and treatment plan needs, including medications if applicable.
Instructions: Know your diagnosis, underlying causes and treatment plan options, including medications if applicable. Consult with your health care team to learn about your diagnosis and treatment plan, including medications if applicable.
Discharge Date and Time
Discharge Date/Time: 11/02/24 13:55
Print Language: AFGHAN
[2024-11-02 11:30] VITALS: PULSE 66; O2SAT 98
[2024-11-02 11:44] VITALS: BP 131/69
[2024-11-02 11:47] VITALS: BP 149/91; PULSE 65; O2SAT 95
--- NOTE | 2024-11-02 12:26 | W.PN.CARDCBS ---
Addendum entered and electronically signed by Leoncio Louise MD 11/02/24 12:52:
I saw and examined the patient.
The STAFF EDITOR or PA's note was reviewed and I agree with the note.
Comment: General: Well developed, well nourished in NAD.
Neck: Supple, no JVD, HJR, carotids +2 B/L, no bruits bilaterally.
Heart: Non displaced PMI, RRR, no murmurs, No S3, S4, no rubs.
Lungs: Clear to auscultation bilaterally, no wheeze, rhonchi, rubs bilaterally,
normal expiratory phase.
Extremities: No clubbing, cyanosis or edema bilaterally.
Neuro: Grossly nonfocal, awake, alert and oriented x3.
Remains in sinus rhythm status post cardioversion on 11/01/2024. Will continue amiodarone 400 mg p.o. 3 times daily while in inpatient and change to 200 mg p.o. twice daily on discharge. Patient has received 3.6 g and will likely change to p.o. 200
twice daily in AM 11/03. Check daily ECG while on amiodarone loading.
Original Note:
Today's Communication / Plan
-
54 min in face to face time and coordination of care
Impression / Plan
-
PCP: Dr. Katz
Primary Marine Chronometer Assembler: Dr. Anaya
Impression:
Admitted with lightheadedness, weakness and new, rapid Afib 10/26/24
Dehydration
FERNANDO
Hypokalemia
Hyponatremia
Elevated LFTs
Paroxysmal Afib, rapid on admission, new diagnosis 10/26/24
s/p successful YESENIA/CV 10/28/24
recurrence of Afib 10/29/24 PM
amiodarone load starting 10/30/24
s/p successful CV 11/01/24
New start to chronic to Eliquis OAC
CAD status post [place] with LAD PCI in 2019
Hypertension
Hyperlipidemia
Prior cervical cancer status post hysterectomy/BSO in 1993
Former tobacco use
ECHO 03/25/23: EF 55 to 60%, no regional wall motion abnormalities noted, mild TR, PAP 25 to 30 mmHg
ECHO 10/27/24: EF 60 to 65%, no regional wall motion abnormalities noted, aortic sclerosis
Plan:
-Patient remains in SR follow successful CV 11/01/24.
-Talked with patient and female visitor/friend at bedside for 20 minutes. Reviewed admission from beginning to now. Reviewed YESENIA/CV last week, amiodarone loading over weekend and CV 11/01/24. Reviewed pathophysiology of Afib and treatment options
including ablation. Reviewed possible side effects of amiodarone and the plans for amiodarone dose to decrease to 200 mg BID for 2 weeks and then 200 mg once daily thereafter. Amiodarone dosing instructions reviewed with patient and friend, written
on d/c paperwork and also e-scribed Rx to her local pharmacy to help avoid confusion upon d/c to home from [facility]. Also took time to explain AAD and ablation procedures.
-Patient was admitted with gastroenteritis symptoms and new rapid Afib last Thursday. Patient had successful YESENIA/CV on 10/28/24, but recurred with Afib by Thursday evening. Loaded with amiodarone and then successful CV 11/01/24.
-Amiodarone 400 mg TID started 10/30/24 AM. Patient has received a 3.6 gram load as of 11/02/24 AM. Plan is for amiodarone as a bridge to ablation.
-New to Cardizem CD 120 mg BID as well.
-Also new to Eliquis 5 mg BID (age 79, Cre 0.6, wt 56.2 kg). No evidence of JUAN thrombus on YESENIA 10/28/24.
-Outpatient dose of lisinopril on hold to allow for addition of Cardizem CD to help with rate control efforts.
-EF 60-65% by echo
-Hospitalist attending notes reviewed and patient with fever on 10/28/23. Negative for COVID and influenza. Blood cultures without growth. Empiric cefepime and vancomycin started and stopped.
-Outpatient EP follow up arranged
-Stable for d/c from a cardic standpoint
Progress Note - Marine Chronometer Assembler
Subjective
Date of Service: November 02, 2024
She feels weak, no palpitations
Objective
Labs:
10/31/24 05:49
10/31/24 05:49
Labs
Hgb 12.5 g/dL (12.0-16.0) 10/31/24 05:49
Hct 36.0 % (37.0-47.0) L 10/31/24 05:49
Plt Count 182 10^3/uL (130-400) D 10/31/24 05:49
PT 12.9 Sec (11.4-14.6) 10/26/24 12:34
INR 0.93 10/26/24 12:34
APTT Cancelled 10/27/24 10:55
Sodium 133 mmol/L (135-145) L 10/31/24 05:49
Potassium 3.7 mmol/L (3.5-5.1) 10/31/24 05:49
BUN 17 mg/dl (7-17) 10/31/24 05:49
Creatinine 0.6 mg/dL (0.6-1.0) 10/31/24 05:49
Glucose 103 mg/dl (70-99) H 10/31/24 05:49
Vital Signs and I&O:
Vital Signs
Temp Pulse Resp BP Pulse Ox
98.8 F 64 16 131/69 97
11/02/24 11:44 11/02/24 11:44 11/02/24 11:44 11/02/24 11:44 11/02/24 11:44
Vital Signs
Temp Pulse Resp BP Pulse Ox
98.8 F 64 16 131/69 97
11/02/24 11:44 11/02/24 11:44 11/02/24 11:44 11/02/24 11:44 11/02/24 11:44
Intake & Output
10/31/24 11/01/24 11/02/24 11/03/24
06:59 06:59 06:59 06:59
Intake Total 240 / 240 780 / 780 660 / 660
Output Total 2300 / 2300 1650 / 1650
Balance -2060 / -2060 -870 / -870 660 / 660
Physical Exam
Physical Exam
GEN: AAO x3
HEENT: EOMI
LUNGS: RA. No audible wheeze.
CV: SR on tele.
NEURO: Gross non-focal
SKIN: No rash
== END 2024-11-02 13:55 | DRG 309 ==
LOC: 3 WEST ACU 15:54
PROVIDERS: Internal Medicine; Internal Medicine Cardiovascular Disease; Physician Assistant; Registered Nurse; ADMITTING PHYSICIAN Internal Medicine; ATTENDING PHYSICIAN Hospitalist; CONSULT PHYSICIAN Nuclear Medicine Nuclear Cardiology; EMERGENCY PHYSICIAN Emergency Medicine; FAMILY PHYSICIAN Family Medicine
PROC: B246ZZ4 Ultrasonography of Right and Left Heart, Transesophageal (ICD-10-PCS; 2024-10-28)
PROC: 5A2204Z Restoration of Cardiac Rhythm, Single (ICD-10-PCS; 2024-10-28)
DX: I48.0 Paroxysmal atrial fibrillation (principal); E87.1 Hypo-osmolality and hyponatremia; N17.9 Acute kidney failure, unspecified; Z68.1 Body mass index [BMI] 19.9 or less, adult; I70.0 Atherosclerosis of aorta; A08.4 Viral intestinal infection, unspecified; E86.0 Dehydration; E87.6 Hypokalemia; I25.10 Atherosclerotic heart disease of native coronary artery without angina pectoris; Z95.5 Presence of coronary angioplasty implant and graft; E78.00 Pure hypercholesterolemia, unspecified; I10 Essential (primary) hypertension; I25.2 Old myocardial infarction; Z91.81 History of falling; F17.200 Nicotine dependence, unspecified, uncomplicated; Z11.52 Encounter for screening for COVID-19; Z79.82 Long term (current) use of aspirin; Z85.41 Personal history of malignant neoplasm of cervix uteri; Z79.899 Other long term (current) drug therapy; E86.1 Hypovolemia; Z90.710 Acquired absence of both cervix and uterus; R63.6 Underweight
CPT/HCPCS: 71045; 80048; 80053; 80061; 80202; 81003; 81015; 83735; 84443; 85025; 85027; 85610; 85730; 86803; 87040; 87502; 87811; 92960; 93005; 93306; 93312; 93320; 93325; 96365; 96366; 96367; 96375; 97116; 97163; 97167; 97530; 97535; 99291

== ENCOUNTER → 2024-11-07 11:37 | Outpatient (REF) | payer MEDICARE, OTHER, SELFPAY ==
[2024-11-07 12:22] LABS: % Basophils 2.3 % (0-2); % Eosinophils 2.1 % (0-6); % Immature Granulocytes 0.3 % (0-0.5); % Lymphocytes 35.7 % (20.5-51.1); % Monocytes 8.4 % (1.7-9.3); % Neutrophils 51.2 % (42.2-75.2); Absolute Basophils 0.1 10^3/uL (0-0.2); Absolute Eosinophils 0.1 10^3/uL (0-0.7); Absolute Lymphocytes 2.2 10^3/uL (1.2-3.4); Absolute Monocytes 0.5 10^3/uL (0.1-0.6); Absolute Neutrophils 3.1 10^3/uL (1.4-6.5); Hematocrit 34.8 % (37.0-47.0); Hemoglobin 11.5 g/dL (12.0-16.0); Mean Corpuscular Hgb 28.3 pg (27.0-31.0); Mean Corpuscular Volume 85.7 fL (81.0-99.0); Mean Platelet Volume 10.2 fL (7.4-10.4); Nucleated Red Blood Cells % 0 %; Platelet Count 245 10^3/uL (130-400); Red Blood Cell Count 4.06 10^6/uL (4.20-5.40); Red Cell Dist. Width 13.8 % (11.5-14.5); White Blood Cell Count 6.1 10^3/uL (4.8-10.8)
[2024-11-07 12:48] LABS: Blood Urea Nitrogen 15 mg/dl (7-17); Calcium 8.6 mg/dl (8.4-10.2); Carbon Dioxide 26 mmol/L (22-30); Chloride 103 mmol/L (98-107); Glucose 90 mg/dl (70-99); Potassium 3.9 mmol/L (3.5-5.1); Sodium 137 mmol/L (135-145); eGFR > 60.00
== END ==
LOC: OLABP 11:37
PROVIDERS: ATTENDING PHYSICIAN Family Medicine
DX: I48.91 Unspecified atrial fibrillation (principal); E78.5 Hyperlipidemia, unspecified; E87.1 Hypo-osmolality and hyponatremia; N17.9 Acute kidney failure, unspecified; I10 Essential (primary) hypertension; I25.2 Old myocardial infarction; Z68.1 Body mass index [BMI] 19.9 or less, adult; R63.6 Underweight
CPT/HCPCS: 36415; 80048; 85025

== ENCOUNTER → 2024-12-28 13:02 | Outpatient (REF) | payer MEDICARE, OTHER, SELFPAY ==
[2024-12-28 13:54] LABS: % Basophils 1.2 % (0-2); % Eosinophils 2.1 % (0-6); % Immature Granulocytes 0.4 % (0-0.5); % Lymphocytes 21.2 % (20.5-51.1); % Monocytes 10.4 % (1.7-9.3); % Neutrophils 64.7 % (42.2-75.2); Absolute Basophils 0.1 10^3/uL (0-0.2); Absolute Eosinophils 0.2 10^3/uL (0-0.7); Absolute Lymphocytes 1.7 10^3/uL (1.2-3.4); Absolute Monocytes 0.8 10^3/uL (0.1-0.6); Absolute Neutrophils 5.2 10^3/uL (1.4-6.5); Hematocrit 42.9 % (37.0-47.0); Hemoglobin 14.4 g/dL (12.0-16.0); Mean Corp Hgb Conc. 33.6 g/dL (33.0-37.0); Mean Corpuscular Hgb 29.3 pg (27.0-31.0); Mean Corpuscular Volume 87.4 fL (81.0-99.0); Mean Platelet Volume 10.6 fL (7.4-10.4); Nucleated Red Blood Cells % 0 %; Platelet Count 249 10^3/uL (130-400); Red Blood Cell Count 4.91 10^6/uL (4.20-5.40); Red Cell Dist. Width 14.9 % (11.5-14.5); White Blood Cell Count 8.1 10^3/uL (4.8-10.8)
[2024-12-28 13:57] LABS: ALT (SGPT) 20 U/L (0-35); AST (SGOT) 32 U/L (14-36); Albumin 4.6 g/dl (3.5-5.0); Alkaline Phosphatase 73 U/L (38-126); Blood Urea Nitrogen 20 mg/dl (7-17); Calcium 10.1 mg/dl (8.4-10.2); Carbon Dioxide 27 mmol/L (22-30); Chloride 104 mmol/L (98-107); Glucose 112 mg/dl (70-99); Potassium 4.3 mmol/L (3.5-5.1); Sodium 139 mmol/L (135-145); Total Bilirubin 0.7 mg/dl (0.2-1.3); Total Protein 7.6 g/dl (6.3-8.2); eGFR 57.66
[2024-12-28 14:02] LABS: INR 1.19; PT 15.7 Sec (11.4-14.6)
== END ==
LOC: SDSPAT 13:02
PROVIDERS: ATTENDING PHYSICIAN Internal Medicine Cardiovascular Disease; FAMILY PHYSICIAN Family Medicine; OTHER PHYSICIAN Internal Medicine Interventional Cardiology
DX: I48.91 Unspecified atrial fibrillation (principal)
CPT/HCPCS: 36415; 75572; 80053; 83735; 85025; 85610; 86850; 86900; 86901; 93005; Q9967

== ENCOUNTER 2025-01-18 07:54 | Day surgery (SDC) | payer MEDICARE, OTHER, SELFPAY ==
[2024-12-28 13:15] VITALS: BMI 18.0
[2025-01-18] VITALS (12 sets, daily range): BP systolic 120–170; BP diastolic 53–84; BMI 17.9
--- NOTE | 2025-01-18 10:39 | ITS.CL.ABL ---
Phosphoric Acid Supervisor - Ablation
Ablation
Procedure Report:
Primary Quality Project Manager: Stephan Anaya MD
Procedure Date: 01/18/2025
Patient History:
Patient is a pleasant 71-year-old female with a past medical history significant for CAD with prior PCI 2020, hyperlipidemia, hypertension, prior tobacco use disorder, and symptomatic paroxysmal atrial fibrillation with early recurrence despite 2
cardioversions and on antiarrhythmic medical therapy and rate controlling medical therapy.
See H&P for complete details.
Indication:
Symptomatic paroxysmal atrial fibrillation
Recurrence despite antiarrhythmic medical therapy
Arrhythmia Specific History:
Prior Medical Therapies for Rate and Rhythm Control:
X Beta-emmy
X Calcium channel-emmy
X Amiodarone
[ ] Dronederone
[ ] Sotalol
[ ] Flecainide
[ ] Dofetilide
[ ] Options limited by bradycardia
[ ] Options limited by comorbid renal disease
Prior Procedural Therapies for AF/AFL:
X Cardioversion
[ ] Pulmonary Vein Isolation
[ ] Posterior Wall Isolation
[ ] Additional lines (Specify)
[ ] Surgical Lima-MAZE or PVI (Specify)
Procedure Performed:
X AF ablation procedure (90159) -- includes LA/CS pacing, trans-septal, 3D mapping, + ICE
[ ] +IV drug (04849)
[ ] +Other Arrhythmia (63256)
X +Other AF Line/ablation (67404) - Floor/Roof and posterior wall
Risks and expected recovery has been explained in detail. Alternative options have been explored, and in a shared-decision making fashion we have decided that this was the most appropriate procedure.
Method
NPO status confirmed. Grounding pad applied. Defibrillator pads applied. Continuous surface ECG, pulse oximetry, and blood pressure were monitored. Procedure was performed under general anesthesia, with anesthesia services.
Both groins were clipped, prepped with Chloraprep, and draped in sterile fashion. Time out was called. Local anesthesia administered with bupivacaine. The right femoral vein was accessed for catheter placement, using ultrasound guidance (images
saved to record), micro-puncture needle/wire, and modified seldinger technique. 3 sheaths were placed. The following catheters were used:
[ ] Tacticath SE (D/F Curve) ablation catheter
X Viewflex 9Fr ICE catheter
X Inquiry decapolar 6Fr diagnostic catheter
[ ] CRD Hex 6Fr
[ ] Arctic Front Advance Cryoballoon ([ ]28mm[ ]23mm)
[ ] Achieve Advance mapping catheter ([ ]15mm[ ]20mm)
X FlexCath Contour 10 Fr with PulseSelect PFA Catheter
X Advisor HD Grid Mapping Catheter, SE
[ ] AcusClickGanic AcuNav 8 Fr ICE catheter
[ ]Other: [ ]
Intracardiac ultrasound (ICE) was carefully advanced into the right atrium to guide sheath placement over a J-wire, catheter placement, guide trans-septal puncture, identify potential complications, identify anatomic structures and ensure proper
contact between ablation catheter and tissue.
Heparin was given prior to trans-septal puncture. Heparin was given to achieve and maintain a target ACT of 300-400 seconds throughout the procedure.
Trans-septal access was performed under ICE guidance. The trans-septal puncture was performed with a SafeSept wire through a Brockenbrough needle assembly through the steerable sheath. The wire was visualized as it entered the LSPV and system
advanced under ICE guidance and fluoroscopy into the LA. The Brockenbrough needle assembly, SafeSept wire and sheath dilator were removed under negative pressure. LA pressure was measured and recorded.
ICE and 3D mapping was performed to identify relevant cardiac structures. A careful 3D map was created to assess for regions of low-voltage and abnormal electrogram signals using HD grid mapping catheter and PulseSelect catheter. Additional mapping
was performed as outlined below.
Prior to ablation, glycopyrrolate was provided. PulseSelect catheter was advanced over J-wire to the ostium of each vein. Pulmonary vein isolation was performed with ostial and antral lesions in a circumferential manner. Contact was visualized via
EAM, ICE, fluoroscopy, and EGM signals. In review of patient's anatomy, it appears that the left veins enter the posterior wall and a common configuration. Additionally, given her short/narrow posterior wall I chose to ablate posterior wall rather
than pulmonary vein isolation on its own out of concern for leaving a channel on the posterior wall which may lead to further arrhythmias. Posterior wall isolation was performed by anchoring the J-wire within the pulmonary vein and placing the
PulseSelect catheter in contact with the posterior wall as visualized by aforementioned methods. Following completion of ablation lesions, a post-ablation voltage/activation map was performed in atrial pacing. Entrance and exit block were confirmed
for each vein and the posterior wall.
Catheter and sheath were removed from the left atrium and post-ablation intracardiac echo evaluation was consistent with pre-ablation with no changes and no pericardial effusion and there is no left atrial thrombus or left ventricle thrombus seen.
Electrophysiology study was performed. No arrhythmias induced. Hemostasis was obtained with figure of 8 stitch for each groin and with manual pressure. Protamine was used for reversal.
Estimated Blood Loss
5 mL
Complications
None
Fluoroscopy: 5.4 minutes; 11.49 mGy
LA Pressure: Pre 1 mmHg, post 7 mmHg
Baseline Intervals:
Rhythm: Sinus bradycardia
NC: 167 ms
QRS: 78 ms
QT: 464 ms
QTc: 459 ms
A-A: 1020 ms
R-R: 1020 ms
Post-Procedure Intervals:
NC: 134 ms
QRS: 88 ms
QT: 517 ms
QTc: 460 ms
A-A: 1264 ms
R-R: 1264 ms
AVWB: 530 ms
AVNERP: 600/430 ms
AERP: 600/310 ms
Recommendations
- Bedrest with straight-leg precautions as ordered
- Admit with anticipate discharge home tomorrow after overnight observation
- Resume home medications as indicated
- Ok to resume anticoagulation tonight if patient and groin sites stable
- PPI daily for 30 days
- Stop amiodarone
- Plan for follow-up in office as scheduled
- Uninterrupted OAC for 3 mo post procedure and likely lifelong OAC with [id number] of 5.
Andrew Pelaez DO, FACC, RS
Clinical Cardiac Engine Pilot
cc: Dr Alanna Curry, Dr Stephan Anaya
[2025-01-18 11:58] LABS: ACT-LR - POC 252 Seconds (116-155)
[2025-01-18 12:15] LABS: ACT-LR - POC 326 Seconds (116-155)
[2025-01-18 12:37] LABS: ACT-LR - POC 350 Seconds (116-155)
[2025-01-18 13:02] LABS: ACT-LR - POC 372 Seconds (116-155)
[2025-01-18 13:12] LABS: ACT-LR - POC 145 Seconds (116-155)
--- NOTE | 2025-01-18 14:41 | PTCARENOTE ---
Received patient from EP lab to room 2258. Patient is AAO but complaining of a left frontal headache, received tylenol and unable to repeat it at this time. Patient with an ice pack on her head. Dressing right groin is dry and intact with a palpable
right pedal pulse. SB on the monitor, call fnotenot in reach.
--- NOTE | 2025-01-18 16:47 | PTCARENOTE ---
Dressing right groin is dry and intact, patient needs frequent reminders to refrain from lifting her head or bending her leg. TT to Nick Durant NP and patient was able to have her HOB elevated 30 degrees so she could drink a cup of coffee. Patient
states her headache is now relieved after having the coffee and she feels much better. Call fontenot in reach, she is waiting for her dinner.
[2025-01-18] MEDS: ELIQUIS 5 MG PO (19:56)
[2025-01-18] MEDS: LIPITOR 80 MG PO (21:18)
--- NOTE | 2025-01-18 23:37 | PTCARENOTE ---
Pt SB with HR 52-54 BPM on monitor. Denies pain or discomfort. rt groin dressing clean and intact. call fontenot in reach
[2025-01-19 04:19] VITALS: BP 133/64
[2025-01-19 04:49] LABS: Hematocrit 35.3 % (37.0-47.0); Mean Corpuscular Hgb 29.5 pg (27.0-31.0); Mean Corpuscular Volume 86.7 fL (81.0-99.0); Platelet Count 187 10^3/uL (130-400); Red Blood Cell Count 4.07 10^6/uL (4.20-5.40); Red Cell Dist. Width 14.5 % (11.5-14.5); White Blood Cell Count 8.4 10^3/uL (4.8-10.8)
[2025-01-19 05:13] LABS: Blood Urea Nitrogen 16 mg/dl (7-17); Calcium 9.3 mg/dl (8.4-10.2); Carbon Dioxide 22 mmol/L (22-30); Chloride 109 mmol/L (98-107); Estimated Creatinine Clearance 67 ml/min; Glucose 119 mg/dl (70-99); Potassium 4.1 mmol/L (3.5-5.1); Sodium 140 mmol/L (135-145); eGFR > 60.00
[2025-01-19 07:52] VITALS: BP 144/68
[2025-01-19] MEDS: ELIQUIS 5 MG PO (08:30)
[2025-01-19] MEDS: ZETIA 10 MG PO (08:30)
[2025-01-19] MEDS: TOPROL XL 25 MG PO (08:30)
[2025-01-19] MEDS: PROTONIX 40 MG PO (08:30)
--- NOTE | 2025-01-19 09:47 | CM ---
Reviewed chart. Met with Mrs. Patel to review discharge plans. She states prior to admission she resides alone in a two story home with one step to enter. She states she has a full flight of steps to get to bedroom. She states she has a full
bathroom on each floor. She states prior to admission she was independent with ambulation and adls. She states she does not have any DME in the home. She states she has a prescription plan and uses [facility]. The discharge plan is to return
home when medically stable.
--- NOTE | 2025-01-19 10:59 | W.PN.CARDCBS ---
Addendum entered and electronically signed by Theo Null MD 01/19/25 13:28:
Patient seen and examined
Agree with FEED RESEARCH TECHNICIAN note assessment
Agree with FEED RESEARCH TECHNICIAN plan
Reviewed details of procedure with patient
Sinus rhythm on telemetry overnight
����Physical Exam
���������������������General:��no apparent distress, not acutely ill
���������������������������Neck:��supple. no meningeal signs. normal psoterior pharynx
������������������������
���������������������������Heart:��s1/s2 regular rate and rhythm, no murmur. equal radial pulses.
��������������������������Lungs: ��no acute respiratory distress. clear bilaterally
����������������������Abdomen:�normal bowel sounds. not tender. no CVAT
��������������������������Neuro:��alert and oriented. no focal neurological deficits
������������������������������Skin: ��no rash
�����������������������Psychiatric:�well kept. interactive and cooperative
Right femoral venous access site inspected without bruit hematoma or pain to palpation
�����������������������Extremities:��no edema. no calf tenderness. negative homans. good distal pulses
Impression:
Symptomatic paroxysmal Afib
post PVI 01/18/25
Bradycardia
HTN
HLD
CAD prior PCI LAD 05/2020
mild MR
Mild-mod TR
cervical cancer post /
Plan:
Resume OAC Eliquis
continue metoprolol
stop Amiodarone due to bradycardia
PPI x 30 days
Activity restrictions reviewed
encouraged C&DB
Home today
f/u DCA 3 mo
Original Note:
Today's Communication / Plan
-
post ablation stable for d/c home
Impression / Plan
-
PCP: Alanna Curry DO
CDY: Stephan Anaya MD
Impression:
Symptomatic paroxysmal Afib
post PVI 01/18/25
Bradycardia
HTN
HLD
CAD prior PCI 05/2020
mild MR
Mild-mod TR
cervical cancer post CEASAR/BSO '94
Plan:
post ablation feels good
groin stable
tele SR/SB
OAC Eliquis
continue metoprolol
stop Amiodarone with bradycardia
PPI x 30 days
Activity restrictions reviewed
encouraged C&DB
Home today
f/u DCA 3 mo
Progress Note - Vice Provost
Subjective
Date of Service: January 19, 2025
denies cp, sob
Objective
Labs:
01/19/25 04:25
01/19/25 04:25
Labs
Hgb 12.0 g/dL (12.0-16.0) 01/19/25 04:25
Hct 35.3 % (37.0-47.0) L 01/19/25 04:25
Plt Count 187 10^3/uL (130-400) 01/19/25 04:25
Sodium 140 mmol/L (135-145) 01/19/25 04:25
Potassium 4.1 mmol/L (3.5-5.1) 01/19/25 04:25
BUN 16 mg/dl (7-17) 01/19/25 04:25
Creatinine 0.6 mg/dL (0.6-1.0) 01/19/25 04:25
Glucose 119 mg/dl (70-99) H 01/19/25 04:25
Vital Signs and I&O:
Vital Signs
Temp Pulse Resp BP Pulse Ox
98.2 F 60 20 144/68 97
01/19/25 07:57 01/19/25 09:30 01/19/25 07:57 01/19/25 07:52 01/19/25 07:57
Vital Signs
Temp Pulse Resp BP Pulse Ox
98.2 F 60 20 144/68 97
01/19/25 07:57 01/19/25 09:30 01/19/25 07:57 01/19/25 07:52 01/19/25 07:57
Intake & Output
01/17/25 01/18/25 01/19/25 01/20/25
06:59 06:59 06:59 06:59
Intake Total 650 / 650
Balance 650 / 650
Physical Exam
Physical Exam
NAD< AOX2-3
S1, S2, RRR
fine bibasilar crackles, non labored, no wheeze
SNTND bsx4
R fem site c/d/i no HT, soft
[2025-01-19 11:02] VITALS: BP 130/59
--- NOTE | 2025-01-19 13:56 | W.DS.TRANS ---
DC Summary - Risk Advisor
-
Discharge Instructions:
Sleep Apnea Risk Low
Discharge Diagnosis/Procedures Atrial fibrillation post ablation
Diet Low Cholesterol
Driving Restrictions No driving for 24 hours
Instructions:
Stand-Alone Forms: DC Instructions- Cath/EP Lab
Changes to Home Medications: Yes
Discharge Medications:
DC Medications w/original date entered in [employer]
acetaminophen 325 mg tablet (Tylenol) 650 mg PO Q6HPRN PRN mild pain 10/26/24
ezetimibe 10 mg tablet (Zetia) 10 mg PO DAILY High Cholesterol 10/26/24
apixaban 5 mg tablet (Eliquis) 5 mg PO BID 30 days #60 tabs 11/01/24
metoprolol succinate 25 mg tablet,extended release 24 hr 25 mg PO DAILY Heart Disease/Condition 01/02/25
atorvastatin 80 mg tablet 80 mg PO HS High Cholesterol 01/18/25
pantoprazole 40 mg tablet,delayed release (Protonix) 40 mg PO DAILY #30 tabs 01/19/25
Home Medication Changes
stop amiodarone, ppi for 30d
Pending Results: No
== END 2025-01-19 12:34 | disposition home or self-care (01) ==
LOC: CATH 07:54
PROVIDERS: Nurse Practitioner Adult Health; ATTENDING PHYSICIAN Internal Medicine Cardiovascular Disease; FAMILY PHYSICIAN Family Medicine; OTHER PHYSICIAN Internal Medicine Interventional Cardiology
DX: I48.0 Paroxysmal atrial fibrillation (principal); I10 Essential (primary) hypertension; E04.1 Nontoxic single thyroid nodule; E78.5 Hyperlipidemia, unspecified; Z87.898 Personal history of other specified conditions; I08.1 Rheumatic disorders of both mitral and tricuspid valves; Z86.0100 Personal history of colon polyps, unspecified; R42 Dizziness and giddiness; Z87.891 Personal history of nicotine dependence; Z85.41 Personal history of malignant neoplasm of cervix uteri; H40.9 Unspecified glaucoma; Z79.01 Long term (current) use of anticoagulants
CPT/HCPCS: C1732; C1894; C1769; C1733; C1766; 80048; 83735; 85027; 85347; 86900; 86901; 93005; 93656; 93657